=== PATIENT | male | born 1945 | race Caucasian/White ===

== ENCOUNTER 2019-04-02 11:08 | Inpatient (IN) | payer MEDICARE ==
[~2019-04-02 11:08] MED LIST: ISOVUE-370 76%-LOCM 1 ML ONE
[2019-04-02 11:47] LABS: Hemoglobin 13.9 g/dL (14.0-18.0); Mean Corpuscular HGB CONC 32.9 g/dL (32.0-36.0); Mean Corpuscular Hemoglobin 27.8 pg (27.0-31.0); Mean Corpuscular Volume 84.4 fL (78.0-98.0); Platelet Count 129 thou/uL (130-400); RBC Distribution Width 16.1 % (11.5-14.5); White Blood Cell (WBC) Count 5.2 thou/uL (4.8-10.8)
[2019-04-02] MEDS ORDERED: Metoprolol Tartrate 25 MG TAB ONE (11:57)
[2019-04-02] MEDS ORDERED: Metoprolol Tartrate 5 MG/5 ML VIAL ONE (11:59)
[2019-04-02 12:13] LABS: Band 12 % (5-11); Burr Cells SLIGHT = 2-5 cells (100X) (0-1/hpf); Eosinophils 1 % (0-10); Lymphocytes 7 % (21-51); MDiff Complete? YES; Monocytes 13 % (0-10); Neutrophil 57 % (42-75); Ovalocytes SLIGHT = 2-5 cells (100X) (0-1/hpf); Platelet Morphology Comment Appears Decreased; Polychromasia SLIGHT = 2-3 cells (100X) (0-2/hpf); Reactive Lymphocytes 9 % (0-10); Tear Drops SLIGHT = 2-5 cells (100X) (0-1/hpf)
[2019-04-02 12:15] LABS: ALT (SGPT) 14 U/L (8-55); AST (SGOT) 30 U/L (5-34); Albumin 3.7 g/dL (3.4-4.8); Alkaline Phosphatase 102 U/L (40-110); Anion Gap 16 mmol/L (10-20); BUN (Urea Nitrogen) 16 mg/dL (8.4-25.7); Bilirubin, Total 3.5 mg/dL (0.2-1.2); Calc. Creatinine Clearance 0 mL/min (70-130); Carbon Dioxide 21 mmol/L (23-31); Chloride 104 mmol/L (98-107); Estimated GFR-MDRD 74; Globulin 3.3 g/dL (2.4-3.5); Glucose 101 mg/dL (83-110); Potassium 4.3 mmol/L (3.5-5.1); Sodium 137 mmol/L (136-145)
--- NOTE | 2019-04-02 13:02 | RAD ---
RADIOGRAPH CHEST 1 VIEW: 04/02/2019 11:40 a.m. HISTORY: A 73-year-old male with dyspnea on exertion, atrial fibrillation and cardiac dysrhythmia. COMPARISON: None available. FINDINGS: The transverse diameter of the cardiac shadow is increased. It is uncertain how much of this represen ts magnification versus true cardiomegaly. The pulmonary vasculature is diffusely mildly prominent bu t there is no ruth pulmonary edema. Questionable moderate to large retrocardiac mass may or may not represent a hiatal hernia. The medial base of the left lower lobe is poorly visualized because of bod y habitus and overlying cardiac shadow. No pneumothorax. IMPRESSION: 1. Questionable cardiomegaly without pulmonary edema. 2. Questionable moderate sized hiatal hernia. 3. A lateral view may be useful. JN [] POS: TPC
[2019-04-02] MEDS ORDERED: Aspirin Chewable 81 MG TAB ONE (14:30)
[2019-04-02] MEDS ORDERED: Enoxaparin Sodium 100 MG/ML SYRINGE ONE (14:30)
--- NOTE | 2019-04-02 15:00 | CT ---
CT ANGIOGRAM OF THE CHEST CHEST: HISTORY: Atrial fibrillation. Shortness of breath on exertion. Rash. COMPARISON: None. TECHNIQUE: CT angiogram of the chest is performed in the axial plane. Three-dimensional reformatted images are s ubmitted for interpretation. FINDINGS: Mediastinum: Upper normal mediastinal lymph nodes. Executive Sales Assistant nonspecific lymph node is right par atracheal location and measures 1 cm. There is a prevascular lymph node measuring 1.6 x 1.0 cm. Heart: Cardiomegaly. No significant pericardial fluid. Aorta: No aneurysm or dissection Upper solid abdominal viscera: No abnormal enhancement. CT evidence of cholelithiasis. No evidence of cholecystitis. Trachea and central bronchi: Patent. Pleural spaces: No effusion. Posterior mediastinum: Moderate hiatal hernia. Lung parenchyma: Patchy dependent atelectatic changes. More focal consolidation left lower lobe may r epresent atelectasis. Minimal atelectatic changes in the medial right lower lobe. Partially calcified nodule in the lingula measuring 0.6 x 0.7 cm. Pneumothorax: None. Osseous structures: No lytic or blastic lesions. Pulmonary arteries: Adequate contrast opacification pulmonary arterial system to the level of lobar a rteries. Limited evaluation of the segmental and subsegmental arteries due to timing of bolus. No filling defect to suggest pulmonary embolism. IMPRESSION: 1. No evidence of pulmonary artery embolism to the level of the lobar arteries. 2. Nonspecific upper normal mediastinal lymph nodes. 3. Hiatal hernia. 4. Cardiomegaly without evidence of significant pericardial fluid. 5. Patchy groundglass opacities, nonspecific. Correlate for edema or infiltrate. 6. CT evidence of cholelithiasis without evidence of cholecystitis. Transcribed Date/Time: 04/02/2019 3:04 PM
[2019-04-02] MEDS ORDERED: Acetaminophen 325 MG TAB PO PRN (16:47)
[2019-04-02] MEDS ORDERED: Acyclovir 800 mg Tablet PO SCH (17:00)
--- NOTE | 2019-04-02 18:32 | HP ---
The patient does not have a primary care physician. CHIEF COMPLAINT: Irregular heart beat. HISTORY OF PRESENT ILLNESS: Mr. Marcial is a very pleasant 73-year-old gentleman, who says he has had a history of ulcerative colitis back when he was in his 30s, but says that has since gone away. He has not seen a doctor since 1994 and he says that he noticed a rash come out on his abdomen and back, which was slightly painful. He went to urgent care and they diagnosed him with shingles. However, they noticed that his heart rate was irregular and did an EKG on him and found that he was in atrial fibrillation and then sent him to the ER here. He says he really did not notice much of a problem, but when we tried to drill down on him, he does admit to being short of breath he says for the last year and a half. He says it notes it when he is walking short distances about 100 feet or so. He says he has not noticed any chest pain. No palpitations and essentially no other symptoms. He denies any nausea, no vomiting, no diarrhea, no diaphoresis. The patient also has no history of any GI bleeds. No history of any hematemesis or any melena. REVIEW OF SYSTEMS: All systems were reviewed and are negative except for that mentioned in the history of present illness. PAST MEDICAL HISTORY: Significant for colitis. He says ulcerative colitis diagnosed in his 30s. He has had no followup since then, and no surveillance colonoscopies. PAST SURGICAL HISTORY: He has had an inguinal hernia repair back in 1994. ALLERGIES: NO KNOWN DRUG ALLERGIES. SOCIAL HISTORY: He is . He is a nonsmoker and nondrinker. His code status is full code. FAMILY HISTORY: Significant for atrial fibrillation in his brother, father who had cancer and Alzheimer disease. CURRENT MEDICATIONS: Include acyclovir and but he actually had not started on the acyclovir and he only had been taking p.r.n. PHYSICAL EXAMINATION: GENERAL: He is alert and oriented and appears to be in no acute distress. VITAL SIGNS: Blood pressure was 111/70; his heart rate initially was around 115, currently it is in the 90s; respiratory rate is 16; and he is afebrile. HEENT: His pupils are equal, round, and reactive to light. Extraocular muscles are intact. His sclerae anicteric. Throat; there is no erythema. No exudates. NECK: No adenopathy. No bruits. LUNGS: Clear to auscultation. There is no wheezing, no rales, no rhonchi. CARDIOVASCULAR: His heart rate is irregular. There is no murmurs, no clicks, no rubs. ABDOMEN: Obese. It is soft, nontender, nondistended. Positive for bowel sounds. There is no rebound. No guarding. No organomegaly. EXTREMITIES: There is no calf tenderness. No joint effusions. NEUROLOGIC: Cranial nerves 2 through 12 are grossly intact. His muscle strength is 5/5 in both his upper and lower extremities. SKIN AND INTEGUMENT: There are no skin changes. No rash. LABORATORY DATA: Sodium is 137, potassium 4.3, chloride is 104, CO2 is 21, BUN is 16, creatinine of 0.99, glucose is 101, bilirubin is 3.5. White blood cell count 5.2, hemoglobin 13.9, hematocrit is 42.2, and platelet count is 129. The troponin is less than 0.010. He had a CT scan of the chest and that is a CT angiogram, which was negative for PE. There was evidence of cardiomegaly and hiatal hernia and some patchy infiltrate, which was nonspecific. He also had an EKG, which by my reading showed atrial fibrillation with a right bundle-branch block and the rate was 114. ASSESSMENT: This is a 73-year-old gentleman, who was recently diagnosed with shingles just today and was found to be in atrial fibrillation with rapid ventricular response. It is unclear how long he may have been in atrial fibrillation, but he admits to me that he had once checked his blood pressure over a year ago and it was reading irregular, but he never sought attention for it. He will be admitted for evaluation. 1. For the atrial fibrillation, currently his rate is controlled after being given a dose of metoprolol in the ER. We will start him on anticoagulation, get an echocardiogram and likely place him on a low-dose beta-michelle as tolerated and consult Cardiology for further recommendations. 2. The herpes zoster. The rash started on Sunday. He is almost out of the window for acyclovir, but we will go ahead and start that now. 3. History of ulcerative colitis. I explained to him that this diagnosis even though currently quiescent does place him at increased risk of colon cancer and that he should be getting his routine colonoscopy surveillance for colon cancer. 4. We discussed the anticoagulation warfarin versus the directly acting oral anticoagulants. The cost is a concern for him, so therefore he is going to think about which one would be the best option for him. We may be able to give him a coupon for a free month supply and hopefully by that time, his [facility] benefits will come through and he can then continue on with the medication. Job ID: [id number]
[2019-04-02] MEDS: Famotidine 20 MG TAB PO SCH (20:52)
[2019-04-02] MEDS: Metoprolol Tartrate 25 MG TAB PO SCH (20:52)
[2019-04-02] MEDS: Acyclovir 800 mg Tablet PO SCH (20:53)
[2019-04-03] MEDS: Acyclovir 800 mg Tablet PO SCH ×5 (00:05→20:21)
[2019-04-03 05:25] LABS: Anion Gap 12 mmol/L (10-20); BUN (Urea Nitrogen) 15 mg/dL (8.4-25.7); Calc. Creatinine Clearance 92 mL/min (70-130); Calcium 8.4 mg/dL (7.8-10.44); Carbon Dioxide 22 mmol/L (23-31); Chloride 104 mmol/L (98-107); Estimated GFR-MDRD 80; Glucose 81 mg/dL (83-110); Potassium 4.3 mmol/L (3.5-5.1); Sodium 134 mmol/L (136-145)
[2019-04-03 05:29] LABS: Band 1 % (5-11); Eosinophils 1 % (0-10); Hemoglobin 11.9 g/dL (14.0-18.0); Hypochromia SLIGHT = 6-15 cells (100X) (0-5/hpf); Lymphocytes 15 % (21-51); MDiff Complete? YES; Mean Corpuscular HGB CONC 31.7 g/dL (32.0-36.0); Mean Corpuscular Hemoglobin 26.8 pg (27.0-31.0); Mean Corpuscular Volume 84.7 fL (78.0-98.0); Monocytes 9 % (0-10); Neutrophil 74 % (42-75); Platelet Count 111 thou/uL (130-400); Platelet Morphology Comment Appears Adequate; RBC Distribution Width 16.3 % (11.5-14.5); Red Blood Cell (RBC) Count 4.44 mill/uL (4.70-6.10); White Blood Cell (WBC) Count 4.8 thou/uL (4.8-10.8)
[2019-04-03] MEDS ORDERED: Enoxaparin Sodium 80 MG/0.8 ML SYRINGE SC SCH (09:00)
[2019-04-03] MEDS ORDERED: Diltiazem 125 MG in Sodium Chloride 0.9% 100 ML IVPB SCH (09:15)
[2019-04-03] MEDS: Famotidine 20 MG TAB PO SCH ×2 (09:46→20:21)
[2019-04-03] MEDS: Metoprolol Tartrate 25 MG TAB PO SCH (09:46)
--- NOTE | 2019-04-03 12:40 | CON ---
DATE OF CONSULTATION: HISTORY OF PRESENT ILLNESS: Kyaw Marcial is a pleasant 73-year-old white male, who is admitted with atrial fibrillation with fast ventricular response. He apparently has not seen a doctor since 1994, when he had hernia surgery. He recently developed a painful rash and went to have this evaluated and was diagnosed as having shingles. Also, he had a fast irregular heartbeat and on EKG was found to have atrial fibrillation with fast ventricular response. He denies ever having any palpitations. He has noticed over the last year that whenever he would check his blood pressure, his monitor would say that he had an irregular pulse, but he states that the heart rate never was greater than 100 as best as he can recall. He does notice that he has developed exertional shortness of breath after walking 100 feet. He denies any chest discomfort. He denies any PND, orthopnea, or leg edema. I had Cardizem drip started earlier today when his heart rate was in the 120s to 130s; however, now, his heart rate has dipped down into the 60s, and we will hold the Cardizem drip at the present time. PAST MEDICAL HISTORY: History of ulcerative colitis diagnosed in his 30s; however, he has not had any problems since that time. Shingles. He denies any history of hypertension, diabetes, or hypercholesterolemia. MEDICATIONS: Acyclovir 800 mg 5 times per day, which he had not yet started. When admitted, no routine medicines. ALLERGIES: NONE. SOCIAL HISTORY: He does not smoke or drink. FAMILY HISTORY: Negative for coronary artery disease; however, brother has atrial fibrillation. REVIEW OF SYSTEMS: A 12-point review of systems is otherwise unremarkable. PHYSICAL EXAMINATION: VITAL SIGNS: Blood pressure 124/79, pulse of 120. HEENT: PERRL. NECK: Supple. CHEST: Clear. CARDIAC: S1 and S2 are normal without any S3, S4, or murmurs. Carotid upstrokes are normal without bruits. ABDOMEN: Normal bowel sounds without tenderness or organomegaly. EXTREMITIES: Reveal no clubbing, cyanosis, or edema. NEUROLOGIC: Grossly intact. SKIN: Warm and dry. LABORATORY DATA: EKG revealed atrial fibrillation with rapid ventricular response of 147 per minute, right bundle-branch block, and diffuse ST and T-wave changes. Echocardiogram revealed mild left ventricular dysfunction with ejection fraction of 40% to 45%, moderately enlarged right ventricle, left atrial and right atrial enlargement, moderate mitral regurgitation, aortic valvular sclerosis, mild aortic regurgitation, mild tricuspid regurgitation, and mild pulmonic regurgitation. Hemoglobin 11.9, hematocrit 37.6, white count 4800, platelets 111,000. D-dimer 0.68. Sodium 134, potassium 4.3, chloride 104, carbon dioxide 22, BUN 15, creatinine 0.92. BNP 361.7. Troponin I is normal. TSH is normal. Chest CTA revealed no evidence of pulmonary embolism, cardiomegaly, and cholelithiasis. IMPRESSION: 1. Atrial fibrillation with fast ventricular response, which historically may have been present for a year. 2. Shingles. 3. History of ulcerative colitis in his 30s. PLAN: Situation was discussed with the patient. Overall, it is recommended that he be anticoagulated, and we discussed Coumadin versus NOAC drugs. He is currently trying to get benefits at [place], and hopefully, they will be able to provide his medications, and so, he will be started on Eliquis 5 mg b.i.d. He will also be loaded with amiodarone since he does have left ventricular dysfunction. After 2 to 3 days of loading with amiodarone, then he will undergo transesophageal echo and electrical cardioversion. Risks of transesophageal echo and electrical cardioversion were discussed including esophageal or teeth damage, , worse heart rhythm, embolic phenomenon including stroke, etc. He understands and agrees to proceed. Job ID: [id number] [facility]
--- NOTE | 2019-04-03 14:11 | PDOC.HOSPP ---
- Subjective Encounter Date: 04/03/19 Encounter Time: 14:10 Subjective: Ms. Marcial was seen today in follow-up of new onset AFIB. He does not have any complaints. He says he is breathing better. - Objective Vital Signs & Weight: Vital Signs (12 hours) Temp Pulse Resp BP BP Pulse Ox 04/03/19 11:50 98.1 F 62 16 96/60 96 04/03/19 08:00 97.0 F L 120 H 18 124/79 120 H 04/03/19 04:00 97.1 F L 114 H 20 118/63 97 Weight Weight 202 lb 12.8 oz I&O: 04/02/19 04/03/19 04/04/19 06:59 06:59 06:59 Intake Total 720 Balance 720 Result Diagrams: 04/03/19 04:33 04/03/19 04:33 Hospitalist ROS - Medication Medications: Active Medications Generic Name Dose Route Start Last Admin Trade Name Freq PRN Reason Stop Dose Admin Acyclovir 800 mg 04/02/19 20:00 04/03/19 13:10 Zovirax PO 800 mg 5XD MARIA EUGENIA Administration Famotidine 20 mg 04/02/19 21:00 04/03/19 09:46 Pepcid PO 20 mg BID MARIA EUGENIA Administration Sodium Chloride 10 ml 04/03/19 21:00 04/03/19 09:46 Flush - Normal Saline IVF 10 ml Q12HR MARIA EUGENIA Administration - Exam Eye: PERRL, anicteric sclera Heart: no murmur, no gallops, no rubs, irregular Respiratory: CTAB, no wheezes, no ronchi, normal chest expansion, rales ( bilaterally) Gastrointestinal: soft, non-tender, non-distended, normal bowel sounds, no palpable masses, no hepatomegaly Extremities: no cyanosis, no edema Hosp A/P (1) Atrial fibrillation with RVR Code(s): I48.91 - UNSPECIFIED ATRIAL FIBRILLATION Status: Acute (2) Chronic systolic heart failure Code(s): I50.22 - CHRONIC SYSTOLIC (CONGESTIVE) HEART FAILURE Status: Chronic - Plan * AFIB- He remains in AFIB- Cardiology input appreciated * He has been started on Amiodarone * Eliquis for stroke prevention * Bilateral rales on exam- ? significance- will consider repeat CXR in the AM
[2019-04-03] MEDS: Amiodarone 200 MG TAB PO SCH ×2 (16:06→20:21)
[2019-04-03] MEDS ORDERED: FLU VACC TS2019-20(65YR UP)/PF 180 MCG/0.5 ML SYRINGE IM ONE (16:45)
[2019-04-03] MEDS: Apixaban 5 MG TAB PO SCH (20:21)
[2019-04-04] MEDS: Acyclovir 800 mg Tablet PO SCH ×5 (00:38→21:12)
[2019-04-04 06:03] LABS: Cardiac Risk 6.2 (Less than 4.5)
[2019-04-04] MEDS: Amiodarone 200 MG TAB PO SCH ×3 (09:44→21:12)
[2019-04-04] MEDS: Famotidine 20 MG TAB PO SCH ×2 (09:44→21:12)
[2019-04-04] MEDS: Apixaban 5 MG TAB PO SCH ×2 (09:45→21:12)
--- NOTE | 2019-04-04 13:14 | PDOC.HOSPP ---
- Subjective Encounter Date: 04/04/19 Encounter Time: 13:11 Subjective: Mr. Marcial was seen today in follow-up of AFIB > he does not have any complaints. - Objective Vital Signs & Weight: Vital Signs (12 hours) Temp Pulse Resp BP Pulse Ox 04/04/19 11:47 97.4 F L 104 H 24 H 120/86 95 04/04/19 08:00 97.6 F 102 H 16 118/68 98 04/04/19 04:00 97.4 F L 73 17 112/89 96 04/04/19 03:30 98 Weight Weight 202 lb 12.8 oz I&O: 04/03/19 04/04/19 04/05/19 06:59 06:59 06:59 Intake Total 720 980 Balance 720 980 Result Diagrams: 04/03/19 04:33 04/03/19 04:33 Hospitalist ROS - Medication Medications: Active Medications Generic Name Dose Route Start Last Admin Trade Name Freq PRN Reason Stop Dose Admin Acyclovir 800 mg 04/02/19 20:00 04/04/19 12:22 Zovirax PO 800 mg 5XD MARIA EUGENIA Administration Amiodarone HCl 400 mg 04/03/19 15:00 04/04/19 09:44 Cordarone PO 400 mg TID MARIA EUGENIA Administration Apixaban 5 mg 04/03/19 21:00 04/04/19 09:45 Eliquis PO 5 mg BID MARIA EUGENIA Administration Famotidine 20 mg 04/02/19 21:00 04/04/19 09:44 Pepcid PO 20 mg BID MARIA EUGENIA Administration Sodium Chloride 10 ml 04/03/19 21:00 04/04/19 09:46 Flush - Normal Saline IVF 10 ml Q12HR MARIA EUGENIA Administration Sodium Chloride 10 ml 04/03/19 09:12 04/03/19 20:21 Flush - Normal Saline IVF 10 ml PRN PRN Administration Saline Flush - Exam Eye: PERRL Heart: no gallops, no rubs, normal peripheral pulses, irregular Respiratory: CTAB, no wheezes, no rales, no ronchi, normal chest expansion Gastrointestinal: soft, non-tender, non-distended, normal bowel sounds, no palpable masses, no hepatomegaly Extremities: no cyanosis, no clubbing, no edema Hosp A/P (1) Atrial fibrillation with RVR Code(s): I48.91 - UNSPECIFIED ATRIAL FIBRILLATION Status: Acute (2) Chronic systolic heart failure Code(s): I50.22 - CHRONIC SYSTOLIC (CONGESTIVE) HEART FAILURE Status: Chronic (3) Herpes zoster Code(s): B02.9 - ZOSTER WITHOUT COMPLICATIONS Status: Acute - Plan * AFIB- He remains in AFIB- continue Amiodarone, and plan is for DOUGIE and Possible Cardioversion on Sunday * Eliquis for stroke prevention * Herpes Zoster- continue Acyclovir
[2019-04-05] MEDS: Acyclovir 800 mg Tablet PO SCH ×6 (00:41→23:54)
[2019-04-05 05:36] VITALS: BMI 29.7
[2019-04-05] MEDS: Apixaban 5 MG TAB PO SCH ×2 (09:42→20:16)
[2019-04-05] MEDS: Amiodarone 200 MG TAB PO SCH ×3 (09:42→20:15)
[2019-04-05] MEDS: Famotidine 20 MG TAB PO SCH ×2 (09:43→20:22)
--- NOTE | 2019-04-05 15:19 | PDOC.HOSPP ---
- Subjective Encounter Date: 04/05/19 Encounter Time: 14:00 Subjective: CC: afib, shingles Patient is doing well. Has mild pain in LLQ where shingles rash is but not significant. States medication is working Patient's heart rate noted to be 115 today. On exam still in afib. Patient states that he went for a walk in the hallway at 7 am this morning and it may have been elevated secondary to that. He denies chest pain, palpitations, lightheadedness or dizziness. - Objective Vital Signs & Weight: Vital Signs (12 hours) Temp Pulse Resp BP Pulse Ox 04/05/19 11:20 97.8 F 115 H 17 121/86 99 04/05/19 07:42 97.4 F L 115 H 19 122/95 H 98 04/05/19 03:54 98.1 F 94 18 110/83 97 Weight Weight 201 lb 9.6 oz I&O: 04/04/19 04/05/19 04/06/19 06:59 06:59 06:59 Intake Total 980 1890 Balance 980 1890 Result Diagrams: 04/03/19 04:33 04/03/19 04:33 Hospitalist ROS - Review of Systems Constitutional: denies: fever, chills Respiratory: denies: cough, dry, shortness of breath Cardiovascular: denies: chest pain, palpitations - Medication Medications: Active Medications Generic Name Dose Route Start Last Admin Trade Name Freq PRN Reason Stop Dose Admin Acyclovir 800 mg 04/02/19 20:00 04/05/19 11:51 Zovirax PO 800 mg 5XD MARIA EUGENIA Administration Amiodarone HCl 400 mg 04/03/19 15:00 04/05/19 09:42 Cordarone PO 400 mg TID MARIA EUGENIA Administration Apixaban 5 mg 04/03/19 21:00 04/05/19 09:42 Eliquis PO 5 mg BID MARIA EUGENIA Administration Famotidine 20 mg 04/02/19 21:00 04/05/19 09:43 Pepcid PO 20 mg BID MARIA EUGENIA Administration Sodium Chloride 10 ml 04/03/19 21:00 04/05/19 09:43 Flush - Normal Saline IVF 10 ml Q12HR MARIA EUGENIA Administration Sodium Chloride 10 ml 04/03/19 09:12 04/03/19 20:21 Flush - Normal Saline IVF 10 ml PRN PRN Administration Saline Flush - Exam General Appearance: NAD, awake alert Eye: PERRL, anicteric sclera ENT: normocephalic atraumatic Neck: no JVD Heart - other findings: irregularly irregular Gastrointestinal - other findings: patient with healing shingles rash on left lower quadrant of abdomen Extremities: no cyanosis, no clubbing, no edema Skin: normal turgor, no lesions Hosp A/P - Plan This is 73 year old male with history of ulcerative colitis who presented with shingles to PCP and was sent to the ER when he was found to be in new onset afib New onset atrial fibrillation - repeat EKG today showing afib with RVR, RBBB. Will recheck electrolytes. Per cardiology, plan for DOUGIE with cardioversion on Sunday - TSH normal at 1.55. - continue amiodarone 400 mg po tid - continue eliquis Shingles - continue acyclovir five times daily Anemia - Hb 11.9/37.6. Recheck CBC today Hyponatremia - mild sodium 134 on 04/03. Will recheck BMP today Code status: full code DVT prophylaxis: eliquis
[2019-04-05 16:01] LABS: Hemoglobin 12.9 g/dL (14.0-18.0); Mean Corpuscular HGB CONC 31.8 g/dL (32.0-36.0); Mean Corpuscular Hemoglobin 27.3 pg (27.0-31.0); Mean Corpuscular Volume 85.8 fL (78.0-98.0); Mean Platelet Volume 8.2 fL (7.4-10.4); Platelet Count 134 thou/uL (130-400); RBC Distribution Width 16.4 % (11.5-14.5); Red Blood Cell (RBC) Count 4.73 mill/uL (4.70-6.10); White Blood Cell (WBC) Count 4.8 thou/uL (4.8-10.8)
[2019-04-05 16:22] LABS: Anion Gap 14 mmol/L (10-20); BUN (Urea Nitrogen) 16 mg/dL (8.4-25.7); Calc. Creatinine Clearance 96 mL/min (70-130); Calcium 8.4 mg/dL (7.8-10.44); Carbon Dioxide 19 mmol/L (23-31); Chloride 106 mmol/L (98-107); Estimated GFR-MDRD 87; Glucose 104 mg/dL (83-110); Potassium 3.9 mmol/L (3.5-5.1); Sodium 135 mmol/L (136-145)
--- NOTE | 2019-04-05 17:19 | PDOC.CPN ---
- Subjective Date: 04/05/19 Time: 17:17 Interval history: Doing well. No new issues. - Review of Systems General: denies: fever/chills, weight/appetite/sleep changes, night sweats, fatigue Respiratory: denies: cough, congestion, shortness of breath, exercise intolerance Cardiovascular: denies: chest pain, palpitation, edema, paroxysmal nocturnal dyspnea, orthopnea Gastrointestinal: denies: nausea, vomiting, diarrhea, constipation, abd pain, GI bleeding Musculoskeletal: denies: pain, tenderness, stiffness, swelling, arthritis/ arthralgias Neurological: denies: numbness, syncope, seizure, weakness - Objective Allergies/Adverse Reactions: Allergies Allergy/AdvReac Type Severity Reaction Status Date / Time No Known Allergies Allergy Verified 04/02/19 17:10 Visit Medications: Current Medications Acetaminophen (Tylenol) 650 mg PO Q4H PRN PRN Reason: Headache/Fever/Mild Pain (1-3) Acyclovir (Zovirax) 800 mg PO 5XD [facility] Last Admin: 04/05/19 15:17 Dose: 800 mg Amiodarone HCl (Cordarone) 400 mg PO TID [facility] Last Admin: 04/05/19 15:17 Dose: 400 mg Apixaban (Eliquis) 5 mg PO BID [facility] Last Admin: 04/05/19 09:42 Dose: 5 mg Famotidine (Pepcid) 20 mg PO BID [facility] Last Admin: 04/05/19 09:43 Dose: 20 mg Sodium Chloride (Flush - Normal Saline) 10 ml IVF Q12HR [facility] Last Admin: 04/05/19 09:43 Dose: 10 ml Sodium Chloride (Flush - Normal Saline) 10 ml IVF PRN PRN PRN Reason: Saline Flush Last Admin: 04/03/19 20:21 Dose: 10 ml Vital Signs & Weight: Vital Signs Temp Pulse Resp BP Pulse Ox 04/05/19 15:14 97.7 F 104 H 15 120/86 97 04/05/19 11:20 97.8 F 115 H 17 121/86 99 04/05/19 07:42 97.4 F L 115 H 19 122/95 H 98 Weight 201 lb 9.6 oz - Physical Exam General: alert & oriented x3 HEENT: mucus membranes moist Neck: supple neck Cardiac: irregularly regular Lungs: clear to auscultation Neuro: grossly intact Abdomen: active bowel sounds Extremities: no edema Skin: clear Musculoskeletal: normal range of motion - Labs Result Diagrams: 04/05/19 15:53 04/05/19 15:53 Troponin/CKMB Troponin I Less than 0.010 ng/mL (< 0.028) 04/02/19 11:30 - Telemetry Supraventricular conduction: atrial fibrillation - Assessment/Plan Assessment/Plan: 1. Atrial fibrillation, rate controlled 2. Shingles. 3. Hx of ulcerative colitis in his 30's. PLAN: - Currently rate controlled. - DOUGIE Cardioversion Sunday.
[2019-04-06 06:44] LABS: Hemoglobin 12.8 g/dL (14.0-18.0); Mean Corpuscular HGB CONC 31.8 g/dL (32.0-36.0); Mean Platelet Volume 9.1 fL (7.4-10.4); Platelet Count 136 thou/uL (130-400); RBC Distribution Width 16.3 % (11.5-14.5); Red Blood Cell (RBC) Count 4.73 mill/uL (4.70-6.10); White Blood Cell (WBC) Count 5.5 thou/uL (4.8-10.8)
[2019-04-06 06:47] LABS: INR-International Normal Ratio 1.7
[2019-04-06 06:48] LABS: PTT 58.9 SEC (22.9-36.1)
[2019-04-06 07:00] LABS: Anion Gap 13 mmol/L (10-20); BUN (Urea Nitrogen) 16 mg/dL (8.4-25.7); Calc. Creatinine Clearance 94 mL/min (70-130); Calcium 8.5 mg/dL (7.8-10.44); Carbon Dioxide 23 mmol/L (23-31); Chloride 106 mmol/L (98-107); Estimated GFR-MDRD 84; Glucose 86 mg/dL (83-110); Potassium 3.9 mmol/L (3.5-5.1); Sodium 138 mmol/L (136-145)
[2019-04-06] MEDS: Acyclovir 800 mg Tablet PO SCH ×4 (08:07→20:56)
[2019-04-06] MEDS: Apixaban 5 MG TAB PO SCH ×2 (08:07→20:56)
[2019-04-06] MEDS: Amiodarone 200 MG TAB PO SCH ×3 (08:07→20:56)
[2019-04-06] MEDS: Famotidine 20 MG TAB PO SCH ×2 (08:07→20:56)
--- NOTE | 2019-04-06 17:43 | PDOC.CPN ---
- Subjective Date: 04/06/19 Time: 17:43 - Review of Systems General: denies: fever/chills, weight/appetite/sleep changes, night sweats, fatigue Respiratory: denies: cough, congestion, shortness of breath, exercise intolerance Cardiovascular: denies: chest pain, palpitation, edema, paroxysmal nocturnal dyspnea, orthopnea Gastrointestinal: denies: nausea, vomiting, diarrhea, constipation, abd pain, GI bleeding Musculoskeletal: denies: pain, tenderness, stiffness, swelling, arthritis/ arthralgias Neurological: denies: numbness, syncope, seizure, weakness - Objective Allergies/Adverse Reactions: Allergies Allergy/AdvReac Type Severity Reaction Status Date / Time No Known Allergies Allergy Verified 04/02/19 17:10 Visit Medications: Current Medications Acetaminophen (Tylenol) 650 mg PO Q4H PRN PRN Reason: Headache/Fever/Mild Pain (1-3) Acyclovir (Zovirax) 800 mg PO 5XD [facility] Last Admin: 04/06/19 16:08 Dose: 800 mg Amiodarone HCl (Cordarone) 400 mg PO TID [facility] Last Admin: 04/06/19 14:31 Dose: 400 mg Apixaban (Eliquis) 5 mg PO BID [facility] Last Admin: 04/06/19 08:07 Dose: 5 mg Famotidine (Pepcid) 20 mg PO BID [facility] Last Admin: 04/06/19 08:07 Dose: 20 mg Sodium Chloride (Flush - Normal Saline) 10 ml IVF Q12HR [facility] Last Admin: 04/06/19 09:00 Dose: 10 ml Sodium Chloride (Flush - Normal Saline) 10 ml IVF PRN PRN PRN Reason: Saline Flush Last Admin: 04/03/19 20:21 Dose: 10 ml Vital Signs & Weight: Vital Signs Temp Pulse Resp BP Pulse Ox 04/06/19 16:00 18 04/06/19 15:34 99.4 F 78 16 120/72 94 L 04/06/19 11:51 97.7 F 76 16 124/85 97 04/06/19 08:00 97.8 F 76 18 140/84 97 Weight 201 lb 9.6 oz - Physical Exam General: alert & oriented x3 HEENT: mucus membranes moist Neck: supple neck Cardiac: irregularly regular Lungs: clear to auscultation Neuro: grossly intact Abdomen: active bowel sounds, soft, non-tender Extremities: no edema Skin: clear Musculoskeletal: no pain - Labs Result Diagrams: 04/06/19 05:59 04/06/19 05:59 Troponin/CKMB Troponin I Less than 0.010 ng/mL (< 0.028) 04/02/19 11:30 - Telemetry Supraventricular conduction: atrial fibrillation - Assessment/Plan Assessment/Plan: 1. Atrial fibrillation, rate controlled 2. Shingles. 3. Hx of ulcerative colitis in his 30's. PLAN: - Currently rate controlled. - DOUGIE Cardioversion Tomorrow with Dr. Tavera.
[2019-04-06] MEDS ORDERED: Lidocaine 1% w/Epinephrine 1:100K 20 ML VIAL FS SCH (20:15)
--- NOTE | 2019-04-06 20:29 | PDOC.HOSPP ---
- Subjective Encounter Date: 04/06/19 Encounter Time: 20:00 Subjective: The patient is doing well. He says his shingles rash hurt some on the left side but it improved with medications. He denies palpitations, chest pain or shortness of breath - Objective Vital Signs & Weight: Vital Signs (12 hours) Temp Pulse Resp BP Pulse Ox 04/06/19 16:00 18 04/06/19 15:34 99.4 F 78 16 120/72 94 L 04/06/19 11:51 97.7 F 76 16 124/85 97 Weight Weight 201 lb 9.6 oz I&O: 04/05/19 04/06/19 04/07/19 06:59 06:59 06:59 Intake Total 1890 1000 Balance 1890 1000 Result Diagrams: 04/06/19 05:59 04/06/19 05:59 Hospitalist ROS - Review of Systems Constitutional: denies: fever, chills Respiratory: denies: cough, dry, shortness of breath - Medication Medications: Active Medications Generic Name Dose Route Start Last Admin Trade Name Freq PRN Reason Stop Dose Admin Acyclovir 800 mg 04/02/19 20:00 04/06/19 16:08 Zovirax PO 800 mg 5XD MARIA EUGENIA Administration Amiodarone HCl 400 mg 04/03/19 15:00 04/06/19 14:31 Cordarone PO 400 mg TID MARIA EUGENIA Administration Apixaban 5 mg 04/03/19 21:00 04/06/19 08:07 Eliquis PO 5 mg BID MARIA EUGENIA Administration Famotidine 20 mg 04/02/19 21:00 04/06/19 08:07 Pepcid PO 20 mg BID MARIA EUGENIA Administration Sodium Chloride 10 ml 04/03/19 21:00 04/06/19 09:00 Flush - Normal Saline IVF 10 ml Q12HR MARIA EUGENIA Administration Sodium Chloride 10 ml 04/03/19 09:12 04/03/19 20:21 Flush - Normal Saline IVF 10 ml PRN PRN Administration Saline Flush - Exam General Appearance: NAD, awake alert Eye: PERRL, anicteric sclera ENT: normocephalic atraumatic, no oropharyngeal lesions Neck: supple, symmetric, no JVD Heart: RRR, no murmur, no gallops, no rubs Respiratory: CTAB, no wheezes, no rales, no ronchi Gastrointestinal: soft, non-tender, non-distended, normal bowel sounds Extremities: no cyanosis, no clubbing, no edema Skin: normal turgor, no lesions, no rashes Neurological: cranial nerve grossly intact, normal sensation to touch, no focal deficits, no new deficit Musculoskeletal: normal tone, normal strength, no muscle wasting Hosp A/P - Plan Chest X ray: cardiomegaly CTA: patchy ground glass opacities, cardiomegaly, cholelithiasis. No PE This is 73 year old male with history of ulcerative colitis who presented with shingles to PCP and was sent to the ER when he was found to be in new onset afib New onset atrial fibrillation - Per cardiology, plan for DOUGIE with cardioversion on Sunday with Dr. Tavera. ECHO shows EF 40-45%, moderate MR, mild AR, WI and TR - TSH normal at 1.55. CTA shows no PE - continue amiodarone 400 mg po tid - continue eliquis Shingles - continue acyclovir five times daily Anemia - stable, check iron panel Hyponatremia - resolved Code status: full code DVT prophylaxis: eliquis
[2019-04-06] MEDS ORDERED: Potassium Chloride 20 MEQ TAB PO SCH (20:45)
[2019-04-07 05:04] LABS: Hemoglobin 13.2 g/dL (14.0-18.0); Mean Corpuscular HGB CONC 31.5 g/dL (32.0-36.0); Mean Corpuscular Hemoglobin 26.6 pg (27.0-31.0); Mean Corpuscular Volume 84.5 fL (78.0-98.0); Mean Platelet Volume 8.7 fL (7.4-10.4); Platelet Count 148 thou/uL (130-400); RBC Distribution Width 16.2 % (11.5-14.5); Red Blood Cell (RBC) Count 4.97 mill/uL (4.70-6.10); White Blood Cell (WBC) Count 5.4 thou/uL (4.8-10.8)
[2019-04-07 05:26] LABS: Anion Gap 12 mmol/L (10-20); BUN (Urea Nitrogen) 15 mg/dL (8.4-25.7); Calc. Creatinine Clearance 94 mL/min (70-130); Calcium 8.6 mg/dL (7.8-10.44); Carbon Dioxide 22 mmol/L (23-31); Chloride 106 mmol/L (98-107); Estimated GFR-MDRD 84; Glucose 85 mg/dL (83-110); Iron 48 ug/dL (65-175); Iron Binding Capacity, Total 354 mcg/dL (261-462); Magnesium 1.8 mg/dL (1.6-2.6); Potassium 3.9 mmol/L (3.5-5.1); Sodium 136 mmol/L (136-145)
[2019-04-07] MEDS: Acyclovir 800 mg Tablet PO SCH ×4 (06:40→15:27)
[2019-04-07] MEDS ORDERED: PROPOFOL 20 ML ONE (07:57)
[2019-04-07] MEDS ORDERED: PROPOFOL 200 MG/20 ML VIAL ONE (09:59)
[2019-04-07] MEDS: Famotidine 20 MG TAB PO SCH (10:46)
[2019-04-07] MEDS: Amiodarone 200 MG TAB PO SCH ×2 (10:46→15:27)
[2019-04-07] MEDS: Apixaban 5 MG TAB PO SCH (10:46)
--- NOTE | 2019-04-07 15:31 | OP ---
DATE OF PROCEDURE: 04/07/2019 PROCEDURE PERFORMED: Transesophageal echocardiogram. INDICATIONS: Kyaw Marcial is a 73-year-old gentleman with paroxysmal atrial fibrillation. DESCRIPTION OF PROCEDURE: The patient was taken to PACU. The patient was sedated by anesthesiology. Transesophageal probe was placed to the distal esophagus and stomach. Echocardiographic images were obtained. The transesophageal probe was removed. FINDINGS: 1. Mild decrease in left ventricular systolic function. 2. Left atrial enlargement. 3. Global hypokinesis. 4. Moderate mitral regurgitation. 5. Moderate tricuspid regurgitation. 6. Trivial aortic regurgitation. 7. No thrombus is noted in the left atrium or left atrial appendage. 8. Atherosclerotic debris in the descending aorta. IMPRESSION: No formed thrombus in left atrium or left atrial appendage. Job ID: [id number]
--- NOTE | 2019-04-07 15:31 | OP ---
DATE OF PROCEDURE: 04/07/2019 PROCEDURE PERFORMED: Electrocardioversion. INDICATIONS: A 73-year-old gentleman with atrial fibrillation. DESCRIPTION OF PROCEDURE: The patient was taken to the PACU. The patient was sedated by Anesthesiology. The patient was shocked with 200 joules of synchronized electricity. The patient converted to normal sinus rhythm. IMPRESSION: Successful electrocardioversion. Job ID: [id number]
[2019-04-07 16:28] VITALS: BP 109/64; TEMP 98
--- NOTE | 2019-04-07 16:54 | EKG ---
Test Reason : Blood Pressure : / mmHG Vent. Rate : 103 BPM Atrial Rate : 122 BPM P-R Int : 000 ms QRS Dur : 158 ms QT Int : 412 ms P-R-T Axes : 000 -05 -55 degrees QTc Int : 539 ms Poor data quality, interpretation may be adversely affected Atrial fibrillation with rapid ventricular response Right bundle branch block T wave abnormality, consider lateral ischemia or digitalis effect Abnormal ECG When compared with ECG of 02-APR-2019 12:45, (Unconfirmed) Questionable change in QRS axis T wave inversion now evident in Inferior leads Confirmed by DR. Davy QUINONES ([id number]) on 04/07/2019 4:54:15 PM Referred By: [facility] Confirmed By:DR. Davy QUINONES
--- NOTE | 2019-04-08 12:31 | DIS ---
DATE OF ADMISSION: 04/02/2019 DATE OF DISCHARGE: 04/07/2019 DISCHARGE DIAGNOSES: New onset atrial fibrillation status post cardioversion, shingles, hyponatremia, anemia, cholelithiasis, hiatal hernia, nonspecific patchy opacities on CT chest. CONSULTATIONS: Dr. Eitan Tavera with Cardiology. PROCEDURES: DOUGIE with cardioversion on 04/07. BRIEF HISTORY OF PRESENT ILLNESS: This is a 73-year-old male with a past medical history of ulcerative colitis, who had presented to his PCP with an attack of shingles. However, they noticed that his heart rate was irregular and when they did an EKG on him, they found that he was in atrial fibrillation and sent him to the emergency room. The patient reported dyspnea on exertion for the past one year , he denied any palpitations. The patient was admitted for further workup. Atrial fibrillation with RVR: The patient initially presented with a heart rate of 102 in the ER. EKG showed atrial fibrillation with RVR, and a right bundle- branch block. Chest Xray showed questionable cardiomegaly. CTA showed no PE, but some nonspecific upper normal mediastinal lymph nodes and patchy ground-glass opacities. ECHO showed an ejection fraction of 40% to 45% with moderate MR. He was started on a beta michelle but after cardiology consultation was loaded with amiodarone and eliquis in anticipation of cardioversion. The patient underwent a DOUGIE on 04/07, with successful cardioversion to normal sinus rhythm. On the day of discharge, the patient had a sinus rhythm with heart rate of 94. He was discharged with an amiodarone taper of 400 mg twice daily for 2 weeks, then 200 mg twice daily for 2 weeks, then 200 mg a day for a week and then to follow up with Dr. Eitan Tavera in a month. He was also discharged with Eliquis 5 mg twice daily. The patient had troponins done that were negative x1. Lipid panel was unremarkable with an LDL of 73 and total cholesterol of 118. Shingles: The patient was started on acyclovir 5 times daily. His shingles rash was improving and noted to be healing. He was given a prescription for acyclovir for another week. The patient is to follow up with his PCP. Anemia: The patient had a hemoglobin of 13.2 with an elevated RDW of 16.2. He had an iron panel done which showed a ferritin level of 36.43, an iron saturation of 14, and an iron level of 48 with a normal TIBC. He was not started on any iron supplementation, this can be followed up as an outpatient. Hyponatremia: The patient initially had a sodium level of 134 on the day of admission, which resolved to 136 on the day of discharge. PERTINENT LABORATORY DATA: CBC 04/07: hemoglobin 13.2, rest of CBC unremarkable. BMP 12/05:, within normal limits. Iron :48. TIBC :354. Iron saturation%: 14. Ferritin : 36.43. Lipid panel: Triglycerides 108, cholesterol 118, LDL 73, HDL 19. TSH :1.253. PERTINENT IMAGING STUDIES: Chest x-ray on 04/02: no acute disease. Cardiomegaly with moderate-sized hiatal hernia. CTA thorax 04/02: ground-glass opacities: No PE. Nonspecific upper normal mediastinal lymph nodes. Cholelithiasis. Echocardiogram on 04/03: EF of 40% to 45%, moderate MR, mild AR, mild TR, mild MT. DISCHARGE CONDITION: Stable. ACTIVITY: As tolerated. DIET: Heart healthy diet. DISCHARGE MEDICATIONS: 1. Acyclovir 800 mg p.o. five times daily. 2. Amiodarone 400 mg twice daily for 2 weeks, then 200 mg twice daily for 2 weeks, then one tablet 200 mg a day after that for a week. 3. Eliquis 5 mg p.o. b.i.d. DISCHARGE INSTRUCTIONS: The patient should follow up with Dr. Eitan Tavera in a month and follow up with his PCP in a week. If the patient has abdominal pain, nausea, or vomiting, he should consider coming back to the ER for workup of gallstones. The patient should also get a repeat chest x-ray to follow up the patchy opacity seen on prior x-ray. However, the patient is asymptomatic currently. Job ID: [id number] [facility]
--- NOTE | 2019-04-09 18:44 | EKG ---
Test Reason : POST DOUGIE/CARDIOVERSI Blood Pressure : / mmHG Vent. Rate : 056 BPM Atrial Rate : 056 BPM P-R Int : 234 ms QRS Dur : 164 ms QT Int : 528 ms P-R-T Axes : 050 -05 264 degrees QTc Int : 509 ms Sinus bradycardia with 1st degree A-V block Right bundle branch block T wave abnormality, consider inferolateral ischemia Abnormal ECG When compared with ECG of 02-APR-2019 12:45, (Unconfirmed) Sinus rhythm has replaced Atrial fibrillation Vent. rate has decreased BY 58 BPM Questionable change in QRS axis T wave inversion now evident in Inferior leads Confirmed by DR. Rojas GAMBOA ([id number]) on 04/09/2019 6:44:36 PM Referred By: [facility]/PRAVIN Confirmed By:DR. Rojas GAMBOA
== END 2019-04-07 18:45 | disposition home or self-care (01) | DRG 309 ==
LOC: ERS 11:08 → 2NO 14:40 → ERS 15:53
PROVIDERS: ADMIT Internal Medicine; ATTEND Internal Medicine
PROC: B246ZZ4 Ultrasonography of Right and Left Heart, Transesophageal (ICD-10-PCS; principal; 2019-04-07)
PROC: 5A2204Z Restoration of Cardiac Rhythm, Single (ICD-10-PCS; 2019-04-07)
DX: I48.91 Unspecified atrial fibrillation (principal); E87.1 Hypo-osmolality and hyponatremia; K51.90 Ulcerative colitis, unspecified, without complications; I50.22 Chronic systolic (congestive) heart failure; D64.9 Anemia, unspecified; B02.9 Zoster without complications; K80.20 Calculus of gallbladder without cholecystitis without obstruction; K44.9 Diaphragmatic hernia without obstruction or gangrene; I45.10 Unspecified right bundle-branch block
CPT/HCPCS: 36415; 71045; 71275; 80048; 80053; 80061; 82728; 83540; 83550; 83735; 83880; 84443; 84484; 85025; 85027; 85379; 85610; 85730; 90471; 90662; 92960; 93005; 93010; 93306; 93312; 94760; 96361; 96372; 96374; G0008; J1650; J2704; J3490; Q9966

== ENCOUNTER 2019-08-19 06:59 | Outpatient (CLI) | payer MEDICARE ==
[2019-08-19 10:30] LABS: #Eosinphils 0.3 thou/uL (0.0-0.7); #Lymphocytes 0.7 thou/uL (1.20-3.40); #Monocytes 0.6 thou/uL (0.11-0.59); #Neutrophils 3.2 thou/uL (1.40-6.50); %Basophils 0.7 % (0.0-1.0); %Lymphocytes 13.8 % (21.0-51.0); %Monocytes 12.6 % (0.0-10.0); %Neutrophils 66.9 % (42.0-75.0); Hemoglobin 14.8 g/dL (14.0-18.0); Mean Corpuscular HGB CONC 31.6 g/dL (32.0-36.0); Mean Corpuscular Hemoglobin 29.4 pg (27.0-31.0); Mean Platelet Volume 7.6 fL (7.4-10.4); Platelet Count 163 thou/uL (130-400); RBC Distribution Width 13.9 % (11.5-14.5); Red Blood Cell (RBC) Count 5.02 mill/uL (4.70-6.10); White Blood Cell (WBC) Count 4.8 thou/uL (4.8-10.8)
[2019-08-19 10:46] LABS: ALT (SGPT) 26 U/L (8-55); AST (SGOT) 47 U/L (5-34); Albumin 3.3 g/dL (3.4-4.8); Alkaline Phosphatase 115 U/L (40-110); Anion Gap 10 mmol/L (10-20); BUN (Urea Nitrogen) 16 mg/dL (8.4-25.7); Calc. Creatinine Clearance 0 mL/min (70-130); Carbon Dioxide 27 mmol/L (23-31); Cardiac Risk 5.2 (Less than 4.5); Chloride 104 mmol/L (98-107); Cholesterol 152 mg/dl (< 200 Desired); Estimated GFR-MDRD 86; Globulin 3.6 g/dL (2.4-3.5); Glucose 104 mg/dL (83-110); HDL Cholesterol 29 mg/dL (>60 Neg Risk); LDL Cholesterol, Calculated 103 mg/dL; Protein, Total 6.9 g/dL (5.8-8.1); Sodium 137 mmol/L (136-145); Triglycerides 102 mg/dL (Less than 150)
--- NOTE | 2019-08-20 22:44 | EKG ---
Test Reason : Blood Pressure : / mmHG Vent. Rate : 067 BPM Atrial Rate : 067 BPM P-R Int : 242 ms QRS Dur : 178 ms QT Int : 482 ms P-R-T Axes : 009 -01 106 degrees QTc Int : 509 ms Sinus rhythm with 1st degree A-V block Right bundle branch block T wave abnormality, consider lateral ischemia Abnormal ECG When compared with ECG of 07-APR-2019 08:49, T wave inversion no longer evident in Inferior leads T wave inversion more evident in Lateral leads Confirmed by Shawnee CARRASCO ([id number]) on 08/20/2019 10:43:39 PM Referred By: S[facility]NA Confirmed By:Shawnee CARRASCO
== END 2019-08-19 07:00 | disposition home or self-care (01) ==
LOC: LABBT 06:59
PROVIDERS: ATTEND Internal Medicine Cardiovascular Disease
DX: I44.0 Atrioventricular block, first degree (principal); I45.10 Unspecified right bundle-branch block
CPT/HCPCS: 80053; 80061; 85025; 93005; 93010

== ENCOUNTER 2019-08-21 05:44 | Day surgery (SDC) | payer MEDICARE ==
[2019-08-19 08:13] VITALS: BMI 25.8
[2019-08-21] MEDS ORDERED: Heparin 10,000 UNITS/1 ML VIAL ONE (06:40)
[2019-08-21] MEDS ORDERED: Midazolam HCl 2 mg/2 ml Vial ONE (06:59)
[2019-08-21] MEDS ORDERED: Fentanyl 100 MCG/2 ML VIAL ONE (06:59)
[2019-08-21] MEDS ORDERED: Protamine Sulfate 50 MG/5 ML VIAL ONE (07:23)
[2019-08-21] MEDS ORDERED: Aspirin Chewable 81 MG TAB ONE (08:36)
[2019-08-21] MEDS ORDERED: Carvedilol 3.125 MG TAB ONE (08:36)
[2019-08-21] MEDS ORDERED: Iopamidol 370 76% 50 ML VIAL FS ONE (09:17)
[2019-08-21] MEDS ORDERED: Iopamidol 370 76% 100 ML VIAL ONE (09:17)
[2019-08-21] MEDS ORDERED: Furosemide 20 MG TAB PO SCH (09:45)
== END 2019-08-21 15:04 | disposition home or self-care (01) ==
LOC: CCL 05:44
PROVIDERS: ATTEND Internal Medicine Cardiovascular Disease
PROC: 4A023N7 Measurement of Cardiac Sampling and Pressure, Left Heart, Percutaneous Approach (ICD-10-PCS; principal; 2019-08-21)
PROC: B2111ZZ Fluoroscopy of Multiple Coronary Arteries using Low Osmolar Contrast (ICD-10-PCS; 2019-08-21)
DX: I25.10 Atherosclerotic heart disease of native coronary artery without angina pectoris (principal); I50.9 Heart failure, unspecified; I48.91 Unspecified atrial fibrillation; Z79.01 Long term (current) use of anticoagulants; Z79.899 Other long term (current) drug therapy
CPT/HCPCS: 85347; 93458; 99152; 99153; C1769; J1644; J2250; J2720; J3010; Q9967

== ENCOUNTER 2021-02-17 10:59 | Outpatient (CLI) | payer MEDICARE, OTHER | END 2021-02-17 11:00 | disposition home or self-care (01) | LOC: BICRAD 10:59 | PROVIDERS: ATTEND Nurse Practitioner Family | DX: I48.0 Paroxysmal atrial fibrillation (principal) | CPT/HCPCS: 71046 ==

== ENCOUNTER 2021-07-05 19:26 | Emergency (ER) | payer MEDICARE, OTHER ==
[2021-07-06] MEDS ORDERED: HYDROcodone/Acetaminophen 10/325 mg Tablet ONE (03:42)
== END 2021-07-06 04:02 | disposition home or self-care (01) ==
LOC: ERS 19:26
DX: S32.019A Unspecified fracture of first lumbar vertebra, initial encounter for closed fracture (principal); S32.029A Unspecified fracture of second lumbar vertebra, initial encounter for closed fracture; S32.039A Unspecified fracture of third lumbar vertebra, initial encounter for closed fracture; S32.049A Unspecified fracture of fourth lumbar vertebra, initial encounter for closed fracture; S32.059A Unspecified fracture of fifth lumbar vertebra, initial encounter for closed fracture; I48.91 Unspecified atrial fibrillation; W19.XXXA Unspecified fall, initial encounter
CPT/HCPCS: 72131

== ENCOUNTER 2021-07-21 08:51 | Outpatient (CLI) | payer MEDICARE, OTHER | END 2021-07-21 08:52 | disposition home or self-care (01) | LOC: TBSIIMAG 08:51 | PROVIDERS: ATTEND Neurological Surgery | DX: S32.021D Stable burst fracture of second lumbar vertebra, subsequent encounter for fracture with routine healing (principal); M47.816 Spondylosis without myelopathy or radiculopathy, lumbar region; M81.0 Age-related osteoporosis without current pathological fracture; M48.8X6 Other specified spondylopathies, lumbar region | CPT/HCPCS: 72100 ==

== ENCOUNTER 2021-10-28 09:47 | Outpatient (CLI) | payer MEDICARE, OTHER | END 2021-10-28 09:48 | disposition home or self-care (01) | LOC: TBSIIMAG 09:47 | PROVIDERS: ATTEND Physician Assistant | DX: M48.56XA Collapsed vertebra, not elsewhere classified, lumbar region, initial encounter for fracture (principal); M85.88 Other specified disorders of bone density and structure, other site; M43.8X6 Other specified deforming dorsopathies, lumbar region | CPT/HCPCS: 72100 ==

== ENCOUNTER 2021-11-11 13:22 | Outpatient (CLI) | payer MEDICARE | END 2021-11-11 13:23 | disposition home or self-care (01) | LOC: BICMRI 13:22 | PROVIDERS: ATTEND Neurological Surgery | DX: Z13.820 Encounter for screening for osteoporosis (principal); M48.56XA Collapsed vertebra, not elsewhere classified, lumbar region, initial encounter for fracture | CPT/HCPCS: 70210; 72146; 72148; 77080 ==

== ENCOUNTER 2021-12-12 12:16 | Outpatient (CLI) | payer MEDICARE | END 2021-12-12 12:17 | disposition home or self-care (01) | LOC: BICCT 12:16 | PROVIDERS: ATTEND Neurological Surgery | DX: S22.008A Other fracture of unspecified thoracic vertebra, initial encounter for closed fracture (principal); M81.0 Age-related osteoporosis without current pathological fracture; R63.4 Abnormal weight loss; J98.4 Other disorders of lung; K44.9 Diaphragmatic hernia without obstruction or gangrene; K80.20 Calculus of gallbladder without cholecystitis without obstruction; N28.1 Cyst of kidney, acquired | CPT/HCPCS: 71250; 74177 ==

== ENCOUNTER 2022-02-22 14:15 | Outpatient (CLI) | payer MEDICARE, OTHER | END 2022-02-22 14:16 | disposition home or self-care (01) | LOC: SCSRAD 14:15 | PROVIDERS: ATTEND Nurse Practitioner Family | DX: I48.0 Paroxysmal atrial fibrillation (principal); K44.9 Diaphragmatic hernia without obstruction or gangrene; I51.7 Cardiomegaly; R09.89 Other specified symptoms and signs involving the circulatory and respiratory systems | CPT/HCPCS: 71046 ==

== ENCOUNTER 2022-06-01 12:17 | Inpatient (IN) | payer MEDICARE, OTHER ==
[2022-06-01] MEDS ORDERED: Furosemide 40 MG/4 ML VIAL ONE (12:40)
[2022-06-01] MEDS ORDERED: Magnesium 2 GM/50 ML BAG (IN WATER) ONE (12:40)
[2022-06-01] MEDS ORDERED: Azithromycin 500 MG VIAL ONE (12:40)
[2022-06-01] MEDS ORDERED: Aspirin Chewable 81 MG TAB ONE (12:40)
[2022-06-01] MEDS ORDERED: cefTRIAXone\\ROCEPHIN 1 GM VIAL ONE (12:40)
[2022-06-01 13:32] LABS: #Lymphocytes 0.6 thou/uL (1.20-3.40); #Monocytes 0.7 thou/uL (0.11-0.59); #Neutrophils 8.3 thou/uL (1.40-6.50); %Basophils 0.1 % (0.0-1.0); %Eosinophils 0.3 % (0.0-10.0); %Lymphocytes 6.2 % (21.0-51.0); %Monocytes 7.3 % (0.0-10.0); %Neutrophils 86.1 % (42.0-75.0); Hemoglobin 15.2 g/dL (14.0-18.0); Mean Corpuscular HGB CONC 32.3 g/dL (32.0-36.0); Mean Corpuscular Hemoglobin 31.1 pg (27.0-31.0); Mean Corpuscular Volume 96.3 fl (78.0-98.0); Mean Platelet Volume 7.4 fL (7.4-10.4); Platelet Count 292 10x3/uL (130-400); RBC Distribution Width 13.8 % (11.5-14.5); Red Blood Cell (RBC) Count 4.88 mill/uL (4.70-6.10); White Blood Cell (WBC) Count 9.7 10x3/uL (4.8-10.8)
[2022-06-01 13:45] LABS: Actual Bicarbonate (HCO3a) 21.1 mEq/L (22-28); Analyzer IN Cardio ER; Base Excess (BEa) -1.7 mEq/L (-2.0 to +3.0); CO2 Tension 30.9 mmHg (35.0-45.0); Calcium, Ionized (arterial) 1.13 mmol/L (1.12-1.30); Carboxyhemoglobin (COHb) 1.3 gm% (0.0-3.0); Hemoglobin (Hb) 15.2 g/dL (14.0-18.0); O2 Tension (PaO2), arterial 65.9 mmHg (> 70.0); Potassium - ABG Lab 3.86 mmol/L (3.70-5.30); pH, Arterial 7.45 (7.35-7.45)
[2022-06-01 13:58] LABS: ALV-art Gradient 323.275 mmHg (0-20); Puncture Site LRA
[2022-06-01 14:04] LABS: ALT (SGPT) 36 U/L (8-55); AST (SGOT) 58 U/L (5-34); Albumin 2.7 g/dL (3.4-4.8); Alkaline Phosphatase 131 U/L (40-110); Anion Gap 17 mmol/L (10-20); BUN (Urea Nitrogen) 25 mg/dL (8.4-25.7); Bilirubin, Total 1.9 mg/dL (0.2-1.2); CK (CPK) 44 U/L (30-200); Calc. Creatinine Clearance 0 mL/min (70-130); Calcium 8.1 mg/dL (7.8-10.44); Carbon Dioxide 19 mmol/L (23-31); Chloride 106 mmol/L (98-107); Estimated GFR 82; Globulin 3.5 g/dL (2.4-3.5); Glucose 128 mg/dL (83-110); Potassium 4.5 mmol/L (3.5-5.1); Protein, Total 6.2 g/dL (5.8-8.1); Sodium 137 mmol/L (136-145)
[2022-06-01 14:24] LABS: Bilirubin Negative (Negative); Blood, Urine Negative (Negative); Clarity Clear (Clear); Glucose, Urine (Dipstick) Normal (Negative); Ketone, Urine Negative (Negative); Leukocyte Negative Leu/uL (Negative); Nitrite Negative (Negative); Protein, Urine (Dipstick) Negative (Neg-Trace); Specific Gravity, Urine 1.015 (1.002-1.036); Urobilinogen Normal mg/dL (Less than 2); pH, Urine 5.5 (5.0-9.0)
[2022-06-01 14:25] LABS: SARS-CoV-2 NAA Rapid Test Not Detected (NotDetected)
[2022-06-01] MEDS ORDERED: Acetaminophen 325 MG TAB PO PRN (15:26)
[2022-06-01 16:25] LABS: Troponin I 0.017 ng/mL (< 0.028)
[2022-06-01 16:31] LABS: Lactic Acid 1.9 mmol/L (0.5-2.2)
[2022-06-01] MEDS ORDERED: predniSONE 20 MG TAB PO SCH (17:00)
[2022-06-01 17:57] LABS: Legionella Urinary Ag Negative (Negative); Strep pneumo Urine Ag NEGATIVE (NEGATIVE)
[2022-06-01] MEDS ORDERED: predniSONE 20 MG TAB ONE (18:37)
[2022-06-01] MEDS: Sodium Chloride 0.9% 1,000 ML IV SCH (18:45)
[2022-06-01 19:21] LABS: Troponin I 0.013 ng/mL (< 0.028)
[2022-06-01] MEDS: Atorvastatin Calcium 40 MG TAB PO SCH (20:35)
[2022-06-01] MEDS: Famotidine 20 MG TAB PO SCH (20:35)
[2022-06-01] MEDS: Doxycycline 100 MG in Sodium Chloride 0.9% 100 ML IVPB SCH (20:35)
[2022-06-01] MEDS: Apixaban 5 MG TAB PO SCH (20:35)
[2022-06-02 04:39] LABS: #Lymphocytes 0.3 thou/uL (1.20-3.40); #Monocytes 0.2 thou/uL (0.11-0.59); #Neutrophils 6.5 thou/uL (1.40-6.50); %Eosinophils 0.1 % (0.0-10.0); %Monocytes 2.7 % (0.0-10.0); %Neutrophils 93.3 % (42.0-75.0); Hemoglobin 13.8 g/dL (14.0-18.0); Mean Corpuscular HGB CONC 32.4 g/dL (32.0-36.0); Mean Corpuscular Volume 95.6 fl (78.0-98.0); Mean Platelet Volume 7.3 fL (7.4-10.4); Platelet Count 247 10x3/uL (130-400); RBC Distribution Width 13.5 % (11.5-14.5); Red Blood Cell (RBC) Count 4.46 mill/uL (4.70-6.10)
[2022-06-02] MEDS: Famotidine 20 MG TAB PO SCH ×2 (08:41→21:33)
[2022-06-02] MEDS: Doxycycline 100 MG in Sodium Chloride 0.9% 100 ML IVPB SCH ×2 (08:41→21:32)
[2022-06-02] MEDS: Apixaban 5 MG TAB PO SCH ×2 (08:41→21:33)
[2022-06-02] MEDS: Amiodarone 200 MG TAB PO SCH (08:41)
[2022-06-02] MEDS: Tamsulosin HCl 0.4 MG CAP PO SCH (08:41)
[2022-06-02] MEDS: cefTRIAXone\\ROCEPHIN 1 GM in Sodium Chloride 0.9% 100 ML IVPB SCH (12:14)
[2022-06-02] MEDS: Sodium Chloride 0.9% 1,000 ML IV SCH (17:36)
[2022-06-02] MEDS: Atorvastatin Calcium 40 MG TAB PO SCH (21:33)
[2022-06-03] MEDS ORDERED: Lorazepam 2 MG/ML VIAL SLOW IVP SCH (06:15)
[2022-06-03 06:16] LABS: Actual Bicarbonate (HCO3a) 23.9 mEq/L (22-28); Base Excess (BEa) -0.4 mEq/L (-2.0 to +3.0); CO2 Tension 37.8 mmHg (35.0-45.0); Calcium, Ionized (arterial) 1.15 mmol/L (1.12-1.30); Carboxyhemoglobin (COHb) 0.7 gm% (0.0-3.0); Hemoglobin (Hb) 13.8 g/dL (14.0-18.0); Potassium - ABG Lab 4.04 mmol/L (3.70-5.30); pH, Arterial 7.42 (7.35-7.45)
[2022-06-03 06:20] LABS: Puncture Site R BRACHIAL
[2022-06-03 08:37] LABS: #Lymphocytes 0.5 thou/uL (1.20-3.40); #Monocytes 0.5 thou/uL (0.11-0.59); #Neutrophils 11.5 thou/uL (1.40-6.50); %Basophils 0.1 % (0.0-1.0); %Eosinophils 0.1 % (0.0-10.0); %Lymphocytes 3.7 % (21.0-51.0); %Neutrophils 92.1 % (42.0-75.0); Hemoglobin 13.9 g/dL (14.0-18.0); Mean Corpuscular HGB CONC 31.9 g/dL (32.0-36.0); Mean Corpuscular Hemoglobin 30.8 pg (27.0-31.0); Mean Corpuscular Volume 96.5 fl (78.0-98.0); Mean Platelet Volume 6.5 fL (7.4-10.4); Platelet Count 340 10x3/uL (130-400); RBC Distribution Width 13.6 % (11.5-14.5); Red Blood Cell (RBC) Count 4.51 mill/uL (4.70-6.10); White Blood Cell (WBC) Count 12.4 10x3/uL (4.8-10.8)
[2022-06-03] MEDS: Sodium Chloride 0.9% 1,000 ML IV SCH ×2 (08:58→22:12)
[2022-06-03] MEDS: Doxycycline 100 MG in Sodium Chloride 0.9% 100 ML IVPB SCH ×2 (08:58→22:11)
[2022-06-03 09:09] LABS: ALT (SGPT) 33 U/L (8-55); AST (SGOT) 59 U/L (5-34); Albumin 2.5 g/dL (3.4-4.8); Alkaline Phosphatase 112 U/L (40-110); Anion Gap 11 mmol/L (10-20); BUN (Urea Nitrogen) 29 mg/dL (8.4-25.7); Bilirubin, Total 1.6 mg/dL (0.2-1.2); Calc. Creatinine Clearance 67 mL/min (70-130); Carbon Dioxide 21 mmol/L (23-31); Chloride 108 mmol/L (98-107); Estimated GFR 91; Glucose 100 mg/dL (83-110); Magnesium 1.9 mg/dL (1.6-2.6); Phosphorus 3.7 mg/dL (2.3-4.7); Potassium 4.2 mmol/L (3.5-5.1); Protein, Total 5.5 g/dL (5.8-8.1); Sodium 136 mmol/L (136-145)
[2022-06-03] MEDS: cefTRIAXone\\ROCEPHIN 1 GM in Sodium Chloride 0.9% 100 ML IVPB SCH (13:03)
[2022-06-03] MEDS: Famotidine 20 MG TAB PO SCH ×2 (13:03→22:08)
[2022-06-03] MEDS: methylPREDNISolone Sod Succ 40 MG VIAL IVP SCH (13:03)
[2022-06-03] MEDS: Apixaban 5 MG TAB PO SCH ×2 (13:03→22:08)
[2022-06-03] MEDS: Amiodarone 200 MG TAB PO SCH (13:04)
[2022-06-03] MEDS: Tamsulosin HCl 0.4 MG CAP PO SCH (13:04)
[2022-06-03] MEDS: Ipratropium/Albuterol 3 ML NEB NEB SCH ×2 (16:26→21:58)
[2022-06-03] MEDS: Mometasone/Formoterol 200/5 60 PUFF INH SCH (18:47)
[2022-06-03] MEDS: Atorvastatin Calcium 40 MG TAB PO SCH (22:08)
[2022-06-04] MEDS: methylPREDNISolone Sod Succ 40 MG VIAL IVP SCH ×2 (01:27→17:23)
[2022-06-04 04:31] LABS: #Lymphocytes 0.2 thou/uL (1.20-3.40); #Monocytes 0.4 thou/uL (0.11-0.59); #Neutrophils 7.1 thou/uL (1.40-6.50); %Basophils 0.1 % (0.0-1.0); %Eosinophils 0.1 % (0.0-10.0); %Lymphocytes 2.9 % (21.0-51.0); %Monocytes 4.5 % (0.0-10.0); %Neutrophils 92.4 % (42.0-75.0); Hemoglobin 13.1 g/dL (14.0-18.0); Mean Corpuscular HGB CONC 31.9 g/dL (32.0-36.0); Mean Corpuscular Hemoglobin 30.9 pg (27.0-31.0); Mean Corpuscular Volume 96.7 fl (78.0-98.0); Mean Platelet Volume 6.9 fL (7.4-10.4); Platelet Count 260 10x3/uL (130-400); RBC Distribution Width 13.5 % (11.5-14.5); Red Blood Cell (RBC) Count 4.25 mill/uL (4.70-6.10); White Blood Cell (WBC) Count 7.7 10x3/uL (4.8-10.8)
[2022-06-04 04:51] LABS: ALT (SGPT) 35 U/L (8-55); AST (SGOT) 59 U/L (5-34); Albumin 2.3 g/dL (3.4-4.8); Alkaline Phosphatase 101 U/L (40-110); Anion Gap 10 mmol/L (10-20); BUN (Urea Nitrogen) 30 mg/dL (8.4-25.7); Bilirubin, Total 1.1 mg/dL (0.2-1.2); Calc. Creatinine Clearance 69 mL/min (70-130); Calcium 8.1 mg/dL (7.8-10.44); Carbon Dioxide 22 mmol/L (23-31); Chloride 110 mmol/L (98-107); Estimated GFR 91; Glucose 119 mg/dL (83-110); Magnesium 2.1 mg/dL (1.6-2.6); Phosphorus 4.1 mg/dL (2.3-4.7); Potassium 4.4 mmol/L (3.5-5.1); Protein, Total 5.3 g/dL (5.8-8.1); Sodium 138 mmol/L (136-145)
[2022-06-04] MEDS: Ipratropium/Albuterol 3 ML NEB NEB SCH ×3 (08:30→22:12)
[2022-06-04] MEDS: Mometasone/Formoterol 200/5 60 PUFF INH SCH ×2 (08:33→18:42)
[2022-06-04] MEDS: Tamsulosin HCl 0.4 MG CAP PO SCH (08:34)
[2022-06-04] MEDS: Amiodarone 200 MG TAB PO SCH (08:34)
[2022-06-04] MEDS: Doxycycline 100 MG in Sodium Chloride 0.9% 100 ML IVPB SCH ×2 (08:35→21:32)
[2022-06-04] MEDS: Apixaban 5 MG TAB PO SCH ×2 (08:35→21:32)
[2022-06-04] MEDS: Famotidine 20 MG TAB PO SCH ×2 (08:35→21:32)
[2022-06-04] MEDS ORDERED: FLU VACC QS2022-23(65YR UP)/PF 240 MCG/0.7 ML SYRINGE IM ONE (09:00)
[2022-06-04] MEDS ORDERED: methylPREDNISolone Sod Succ 40 MG VIAL IVP SCH (12:45)
[2022-06-04] MEDS: cefTRIAXone\\ROCEPHIN 1 GM in Sodium Chloride 0.9% 100 ML IVPB SCH (13:48)
[2022-06-04] MEDS: Atorvastatin Calcium 40 MG TAB PO SCH (21:32)
[2022-06-05] MEDS: methylPREDNISolone Sod Succ 40 MG VIAL IVP SCH ×4 (01:24→17:24)
[2022-06-05] MEDS: Sodium Chloride 0.9% 1,000 ML IV SCH ×2 (01:25→22:53)
[2022-06-05 04:36] LABS: #Lymphocytes 0.3 thou/uL (1.20-3.40); #Monocytes 0.5 thou/uL (0.11-0.59); #Neutrophils 9.7 thou/uL (1.40-6.50); %Eosinophils 0.1 % (0.0-10.0); %Lymphocytes 2.5 % (21.0-51.0); %Monocytes 4.8 % (0.0-10.0); %Neutrophils 92.7 % (42.0-75.0); Hemoglobin 13.7 g/dL (14.0-18.0); Mean Corpuscular HGB CONC 33.4 g/dL (32.0-36.0); Mean Corpuscular Hemoglobin 32.3 pg (27.0-31.0); Mean Corpuscular Volume 96.7 fl (78.0-98.0); Mean Platelet Volume 6.6 fL (7.4-10.4); Platelet Count 320 10x3/uL (130-400); RBC Distribution Width 13.5 % (11.5-14.5); Red Blood Cell (RBC) Count 4.24 mill/uL (4.70-6.10); White Blood Cell (WBC) Count 10.5 10x3/uL (4.8-10.8)
[2022-06-05 05:07] LABS: Anion Gap 9 mmol/L (10-20); BUN (Urea Nitrogen) 33 mg/dL (8.4-25.7); Calc. Creatinine Clearance 73 mL/min (70-130); Carbon Dioxide 23 mmol/L (23-31); Chloride 112 mmol/L (98-107); Estimated GFR 92; Glucose 129 mg/dL (83-110); Potassium 4.1 mmol/L (3.5-5.1); Sodium 140 mmol/L (136-145)
[2022-06-05] MEDS: Ipratropium/Albuterol 3 ML NEB NEB SCH (07:47)
[2022-06-05] MEDS: Mometasone/Formoterol 200/5 60 PUFF INH SCH ×2 (07:50→18:33)
[2022-06-05] MEDS: Famotidine 20 MG TAB PO SCH ×2 (08:49→22:53)
[2022-06-05] MEDS: Doxycycline 100 MG in Sodium Chloride 0.9% 100 ML IVPB SCH ×2 (08:50→22:53)
[2022-06-05] MEDS: Apixaban 5 MG TAB PO SCH ×2 (08:50→22:52)
[2022-06-05] MEDS: Amiodarone 200 MG TAB PO SCH (08:50)
[2022-06-05] MEDS: Tamsulosin HCl 0.4 MG CAP PO SCH (08:50)
[2022-06-05] MEDS: cefTRIAXone\\ROCEPHIN 1 GM in Sodium Chloride 0.9% 100 ML IVPB SCH (13:26)
[2022-06-05] MEDS: Atorvastatin Calcium 40 MG TAB PO SCH (22:52)
[2022-06-06 02:23] LABS: Actual Bicarbonate (HCO3a) 21.8 mEq/L (22-28); Base Excess (BEa) -2.5 mEq/L (-2.0 to +3.0); CO2 Tension 36.4 mmHg (35.0-45.0); Calcium, Ionized (arterial) 1.23 mmol/L (1.12-1.30); Carboxyhemoglobin (COHb) 0.8 gm% (0.0-3.0); Hemoglobin (Hb) 14.4 g/dL (14.0-18.0); Potassium - ABG Lab 4.31 mmol/L (3.70-5.30)
[2022-06-06 02:25] LABS: Puncture Site RRA
[2022-06-06] MEDS: methylPREDNISolone Sod Succ 40 MG VIAL IVP SCH ×4 (02:54→17:18)
[2022-06-06 02:55] LABS: #Lymphocytes 0.2 thou/uL (1.20-3.40); #Monocytes 0.7 thou/uL (0.11-0.59); #Neutrophils 10.9 thou/uL (1.40-6.50); Hemoglobin 13.8 g/dL (14.0-18.0); Mean Corpuscular HGB CONC 30.7 g/dL (32.0-36.0); Mean Corpuscular Hemoglobin 29.9 pg (27.0-31.0); Mean Corpuscular Volume 97.3 fl (78.0-98.0); Mean Platelet Volume 6.8 fL (7.4-10.4); Platelet Count 342 10x3/uL (130-400); RBC Distribution Width 13.6 % (11.5-14.5); Red Blood Cell (RBC) Count 4.62 mill/uL (4.70-6.10); White Blood Cell (WBC) Count 11.9 10x3/uL (4.8-10.8)
[2022-06-06 03:42] LABS: Anion Gap 9 mmol/L (10-20); BUN (Urea Nitrogen) 35 mg/dL (8.4-25.7); Calc. Creatinine Clearance 72 mL/min (70-130); Carbon Dioxide 23 mmol/L (23-31); Chloride 113 mmol/L (98-107); Estimated GFR 91; Glucose 140 mg/dL (83-110); Magnesium 2.1 mg/dL (1.6-2.6); Phosphorus 2.7 mg/dL (2.3-4.7); Potassium 4.4 mmol/L (3.5-5.1); Sodium 141 mmol/L (136-145)
[2022-06-06] MEDS: Mometasone/Formoterol 200/5 60 PUFF INH SCH ×2 (06:57→18:40)
[2022-06-06] MEDS: Famotidine 20 MG TAB PO SCH ×2 (08:46→20:40)
[2022-06-06] MEDS: Amiodarone 200 MG TAB PO SCH (08:46)
[2022-06-06] MEDS: Tamsulosin HCl 0.4 MG CAP PO SCH (08:46)
[2022-06-06] MEDS: Apixaban 5 MG TAB PO SCH ×2 (08:46→20:41)
[2022-06-06] MEDS: Doxycycline 100 MG in Sodium Chloride 0.9% 100 ML IVPB SCH ×2 (08:47→20:40)
[2022-06-06] MEDS ORDERED: Furosemide 40 MG/4 ML VIAL ONE (09:58)
[2022-06-06] MEDS: Sodium Chloride 0.9% 1,000 ML IV SCH (10:22)
[2022-06-06] MEDS: cefTRIAXone\\ROCEPHIN 1 GM in Sodium Chloride 0.9% 100 ML IVPB SCH (14:40)
[2022-06-06] MEDS: Atorvastatin Calcium 40 MG TAB PO SCH (20:40)
[2022-06-07] MEDS: methylPREDNISolone Sod Succ 40 MG VIAL IVP SCH ×2 (01:42→05:46)
[2022-06-07] MEDS: Sodium Chloride 0.9% 1,000 ML IV SCH (03:52)
[2022-06-07] MEDS: Mometasone/Formoterol 200/5 60 PUFF INH SCH ×2 (06:20→19:13)
[2022-06-07 07:47] LABS: #Lymphocytes 0.2 thou/uL (1.20-3.40); #Monocytes 0.4 thou/uL (0.11-0.59); #Neutrophils 9.5 thou/uL (1.40-6.50); %Lymphocytes 1.7 % (21.0-51.0); %Monocytes 4.3 % (0.0-10.0); Hemoglobin 13.6 g/dL (14.0-18.0); Mean Corpuscular HGB CONC 31.7 g/dL (32.0-36.0); Mean Corpuscular Hemoglobin 30.5 pg (27.0-31.0); Mean Platelet Volume 6.9 fL (7.4-10.4); Platelet Count 258 10x3/uL (130-400); RBC Distribution Width 13.6 % (11.5-14.5); Red Blood Cell (RBC) Count 4.48 mill/uL (4.70-6.10); White Blood Cell (WBC) Count 10.1 10x3/uL (4.8-10.8)
[2022-06-07 08:10] LABS: Anion Gap 8 mmol/L (10-20); BUN (Urea Nitrogen) 39 mg/dL (8.4-25.7); Calc. Creatinine Clearance 75 mL/min (70-130); Calcium 8.1 mg/dL (7.8-10.44); Carbon Dioxide 29 mmol/L (23-31); Chloride 111 mmol/L (98-107); Estimated GFR 92; Glucose 143 mg/dL (83-110); Magnesium 2.1 mg/dL (1.6-2.6); Phosphorus 3.6 mg/dL (2.3-4.7); Potassium 4.1 mmol/L (3.5-5.1); Sodium 144 mmol/L (136-145)
[2022-06-07] MEDS: Famotidine 20 MG TAB PO SCH ×2 (08:20→21:08)
[2022-06-07] MEDS: Amiodarone 200 MG TAB PO SCH (08:20)
[2022-06-07] MEDS: Apixaban 5 MG TAB PO SCH ×2 (08:20→21:08)
[2022-06-07] MEDS: Tamsulosin HCl 0.4 MG CAP PO SCH (08:20)
[2022-06-07] MEDS: Doxycycline 100 MG in Sodium Chloride 0.9% 100 ML IVPB SCH (08:21)
[2022-06-07] MEDS ORDERED: Furosemide 100 MG/10 ML VIAL SLOW IVP SCH (09:00)
[2022-06-07] MEDS: Atorvastatin Calcium 40 MG TAB PO SCH (21:08)
[2022-06-08 04:09] LABS: #Lymphocytes 0.3 thou/uL (1.20-3.40); #Monocytes 1.2 thou/uL (0.11-0.59); #Neutrophils 14.6 thou/uL (1.40-6.50); %Lymphocytes 2.1 % (21.0-51.0); %Monocytes 7.2 % (0.0-10.0); %Neutrophils 90.7 % (42.0-75.0); Hemoglobin 14.6 g/dL (14.0-18.0); Mean Corpuscular HGB CONC 30.6 g/dL (32.0-36.0); Mean Corpuscular Hemoglobin 29.6 pg (27.0-31.0); Mean Corpuscular Volume 96.5 fl (78.0-98.0); Platelet Count 288 10x3/uL (130-400); RBC Distribution Width 13.9 % (11.5-14.5); Red Blood Cell (RBC) Count 4.93 mill/uL (4.70-6.10); White Blood Cell (WBC) Count 16.1 10x3/uL (4.8-10.8)
[2022-06-08] MEDS: Sodium Chloride 0.9% 1,000 ML IV SCH ×2 (04:24→23:59)
[2022-06-08 04:31] LABS: Anion Gap 8 mmol/L (10-20); BUN (Urea Nitrogen) 45 mg/dL (8.4-25.7); Calc. Creatinine Clearance 63 mL/min (70-130); Calcium 8.1 mg/dL (7.8-10.44); Carbon Dioxide 31 mmol/L (23-31); Chloride 107 mmol/L (98-107); Estimated GFR 87; Glucose 107 mg/dL (83-110); Potassium 3.9 mmol/L (3.5-5.1); Sodium 142 mmol/L (136-145)
[2022-06-08] MEDS: Mometasone/Formoterol 200/5 60 PUFF INH SCH ×2 (06:52→18:42)
[2022-06-08] MEDS ORDERED: methylPREDNISolone Sod Succ 40 MG VIAL IVP SCH (09:00)
[2022-06-08] MEDS: Apixaban 5 MG TAB PO SCH ×2 (10:18→21:37)
[2022-06-08] MEDS: Famotidine 20 MG TAB PO SCH (10:18)
[2022-06-08] MEDS: Tamsulosin HCl 0.4 MG CAP PO SCH (10:18)
[2022-06-08] MEDS: Amiodarone 200 MG TAB PO SCH (10:18)
[2022-06-08] MEDS: Lactated Ringer's 1,000 ML IV SCH (10:45)
[2022-06-08 11:27] LABS: Actual Bicarbonate (HCO3a) 30.7 mEq/L (22-28); Base Excess (BEa) 6.4 mEq/L (-2.0 to +3.0); CO2 Tension 42.6 mmHg (35.0-45.0); Calcium, Ionized (arterial) 1.17 mmol/L (1.12-1.30); Carboxyhemoglobin (COHb) 1.2 gm% (0.0-3.0); Hemoglobin (Hb) 15.5 g/dL (14.0-18.0); Potassium - ABG Lab 3.92 mmol/L (3.70-5.30); pH, Arterial 7.48 (7.35-7.45)
[2022-06-08 11:42] LABS: O2 Tension (PaO2), arterial 43.1 mmHg (> 70.0)
[2022-06-08 11:43] LABS: Puncture Site RRA
[2022-06-08] MEDS ORDERED: Ipratropium/Albuterol 3 ML NEB NEB SCH (12:30)
[2022-06-08] MEDS ORDERED: Furosemide 40 MG/4 ML VIAL SLOW IVP SCH (13:00)
[2022-06-08] MEDS: methylPREDNISolone Sod Succ 40 MG VIAL IVP SCH ×3 (13:59→23:59)
[2022-06-08 14:08] LABS: Base Excess (BEa) 5.9 mEq/L (-2.0 to +3.0); CO2 Tension 46.3 mmHg (35.0-45.0); Calcium, Ionized (arterial) 1.19 mmol/L (1.12-1.30); Carboxyhemoglobin (COHb) 1.3 gm% (0.0-3.0); Hemoglobin (Hb) 15.7 g/dL (14.0-18.0); O2 Tension (PaO2), arterial 67.9 mmHg (> 70.0); Potassium - ABG Lab 4.21 mmol/L (3.70-5.30); pH, Arterial 7.44 (7.35-7.45)
[2022-06-08 14:20] LABS: ALV-art Gradient 587.225 mmHg (0-20); Puncture Site LRA
[2022-06-08] MEDS: Ipratropium/Albuterol 3 ML NEB IPPB SCH ×3 (14:53→22:21)
[2022-06-08] MEDS ORDERED: Electrolyte Replacement Protocol 1 EACH FS ONE (17:06)
[2022-06-08] MEDS ORDERED: Ventilator Sedation Protocol 1 EACH FS SCH ×2 (17:15→17:45)
[2022-06-08] MEDS ORDERED: Electrolyte Replacement Protocol FS PRN (17:15)
[2022-06-08] MEDS ORDERED: Propofol 1,000 MG/100 ML VIAL IV ONE (17:22)
[2022-06-08] MEDS ORDERED: Propofol BOLUS 1,000 MG/100 ML VIAL IV PRN ×2 (17:30→18:00)
[2022-06-08] MEDS ORDERED: DISCONTINUE PREVIOUS NARCOTIC PAIN MEDICATIONS AND BENZODIAZEPINES FS SCH ×2 (17:30→18:00)
[2022-06-08] MEDS ORDERED: Fentanyl BOLUS 250 ML IVPB PRN (17:30)
[2022-06-08] MEDS ORDERED: Morphine 4 MG/ML VIAL SLOW IVP PRN ×2 (17:30→18:00)
[2022-06-08] MEDS: PROPOFOL 200 MG/20 ML VIAL IV SCH ×2 (17:40→20:02)
[2022-06-08] MEDS: Propofol 1,000 MG/100 ML VIAL IV PRN (17:40)
[2022-06-08] MEDS ORDERED: Midazolam HCl 2 mg/2 ml Vial ONE (17:42)
[2022-06-08] MEDS ORDERED: Midazolam HCl 2 mg/2 ml Vial SLOW IVP PRN (18:00)
[2022-06-08] MEDS ORDERED: Propofol 1,000 MG/100 ML VIAL IV PRN (18:00)
[2022-06-08] MEDS ORDERED: Fentanyl CADD 100 ML ONE (18:27)
[2022-06-08] MEDS: Fentanyl CADD 100 ML IV SCH (18:30)
[2022-06-08] MEDS: Atorvastatin Calcium 40 MG TAB PO SCH (21:37)
[2022-06-09] MEDS: Ipratropium/Albuterol 3 ML NEB IPPB SCH ×6 (02:04→21:50)
[2022-06-09] MEDS: Propofol 1,000 MG/100 ML VIAL IV PRN (02:21)
[2022-06-09 03:56] LABS: #Lymphocytes 0.1 thou/uL (1.20-3.40); #Monocytes 0.5 thou/uL (0.11-0.59); #Neutrophils 15.6 thou/uL (1.40-6.50); %Basophils 0.1 % (0.0-1.0); %Eosinophils 0.1 % (0.0-10.0); %Lymphocytes 0.8 % (21.0-51.0); %Monocytes 2.9 % (0.0-10.0); %Neutrophils 96.1 % (42.0-75.0); Hemoglobin 14.5 g/dL (14.0-18.0); Mean Corpuscular HGB CONC 31.1 g/dL (32.0-36.0); Mean Corpuscular Hemoglobin 29.9 pg (27.0-31.0); Mean Corpuscular Volume 96.3 fl (78.0-98.0); Mean Platelet Volume 7.5 fL (7.4-10.4); Platelet Count 209 10x3/uL (130-400); RBC Distribution Width 13.9 % (11.5-14.5); Red Blood Cell (RBC) Count 4.85 mill/uL (4.70-6.10); White Blood Cell (WBC) Count 16.2 10x3/uL (4.8-10.8)
[2022-06-09 04:28] LABS: ALT (SGPT) 99 U/L (8-55); AST (SGOT) 100 U/L (5-34); Albumin 2.2 g/dL (3.4-4.8); Alkaline Phosphatase 121 U/L (40-110); Anion Gap 10 mmol/L (10-20); BUN (Urea Nitrogen) 51 mg/dL (8.4-25.7); Bilirubin, Total 1.4 mg/dL (0.2-1.2); Calc. Creatinine Clearance 66 mL/min (70-130); Carbon Dioxide 30 mmol/L (23-31); Chloride 108 mmol/L (98-107); Estimated GFR 88; Globulin 2.6 g/dL (2.4-3.5); Glucose 124 mg/dL (83-110); Magnesium 2.3 mg/dL (1.6-2.6); Phosphorus 4.5 mg/dL (2.3-4.7); Potassium 4.7 mmol/L (3.5-5.1); Protein, Total 4.8 g/dL (5.8-8.1); Sodium 143 mmol/L (136-145)
[2022-06-09] MEDS: methylPREDNISolone Sod Succ 40 MG VIAL IVP SCH ×3 (05:41→17:30)
[2022-06-09] MEDS ORDERED: Fentanyl CADD 100 ML ONE ×2 (06:50→21:16)
[2022-06-09 06:51] LABS: Base Excess (BEa) 4.5 mEq/L (-2.0 to +3.0); Calcium, Ionized (arterial) 1.23 mmol/L (1.12-1.30); Carboxyhemoglobin (COHb) 1.2 gm% (0.0-3.0); Hemoglobin (Hb) 14.9 g/dL (14.0-18.0); O2 Tension (PaO2), arterial 64.7 mmHg (> 70.0); Potassium - ABG Lab 4.76 mmol/L (3.70-5.30); pH, Arterial 7.31 (7.35-7.45)
[2022-06-09 06:56] LABS: CO2 Tension 66.4 mmHg (35.0-45.0); Puncture Site RBA
[2022-06-09] MEDS: Fentanyl CADD 100 ML IV SCH ×2 (06:56→21:20)
[2022-06-09] MEDS: Mometasone/Formoterol 200/5 60 PUFF INH SCH ×2 (06:57→18:47)
[2022-06-09] MEDS: Tamsulosin HCl 0.4 MG CAP PO SCH (09:16)
[2022-06-09] MEDS: Apixaban 5 MG TAB PO SCH ×2 (09:16→20:59)
[2022-06-09] MEDS: Amiodarone 200 MG TAB PO SCH (09:16)
[2022-06-09] MEDS: Lactated Ringer's 1,000 ML IV SCH ×2 (09:17→17:31)
[2022-06-09] MEDS: Pantoprazole 40 MG VIAL IVP SCH (09:17)
[2022-06-09] MEDS: NOREPINEPHRINE 8 MG/250 ML-D5W 250 ML IVPB SCH (11:40)
[2022-06-09] MEDS ORDERED: Lactated Ringer's 500 ML IV SCH (14:15)
[2022-06-09] MEDS: Midazolam HCl 2 mg/2 ml Vial SLOW IVP PRN (14:47)
[2022-06-09] MEDS: Atorvastatin Calcium 40 MG TAB PO SCH (20:59)
[2022-06-10] MEDS: methylPREDNISolone Sod Succ 40 MG VIAL IVP SCH ×4 (00:06→17:38)
[2022-06-10] MEDS: Ipratropium/Albuterol 3 ML NEB IPPB SCH ×6 (02:09→22:18)
[2022-06-10 05:01] LABS: Hemoglobin 12.6 g/dL (14.0-18.0); Mean Corpuscular HGB CONC 30.1 g/dL (32.0-36.0); Mean Corpuscular Hemoglobin 29.6 pg (27.0-31.0); Mean Corpuscular Volume 98.4 fl (78.0-98.0); Mean Platelet Volume 8.7 fL (7.4-10.4); Platelet Count 203 10x3/uL (130-400); RBC Distribution Width 13.9 % (11.5-14.5); Red Blood Cell (RBC) Count 4.27 mill/uL (4.70-6.10); White Blood Cell (WBC) Count 15.9 10x3/uL (4.8-10.8)
[2022-06-10 05:21] LABS: MDiff Complete? YES
[2022-06-10 05:22] LABS: Band 2 % (5-11); Lymphocytes 2 % (21-51); Monocytes 5 % (0-10); Neutrophil 91 % (42-75)
[2022-06-10] MEDS: Mometasone/Formoterol 200/5 60 PUFF INH SCH ×2 (06:32→18:09)
[2022-06-10 06:51] LABS: Actual Bicarbonate (HCO3a) 31.9 mEq/L (22-28); Base Excess (BEa) 4.3 mEq/L (-2.0 to +3.0); Calcium, Ionized (arterial) 1.21 mmol/L (1.12-1.30); Carboxyhemoglobin (COHb) 0.5 gm% (0.0-3.0); Hemoglobin (Hb) 13.6 g/dL (14.0-18.0); O2 Tension (PaO2), arterial 72.6 mmHg (> 70.0); pH, Arterial 7.33 (7.35-7.45)
[2022-06-10 06:58] LABS: ALV-art Gradient 207.025 mmHg (0-20); CO2 Tension 61.5 mmHg (35.0-45.0); Puncture Site RRA
[2022-06-10 07:36] LABS: Albumin 2.4 g/dL (3.4-4.8)
[2022-06-10 07:37] LABS: Chloride 108 mmol/L (98-107); Potassium 4.8 mmol/L (3.5-5.1); Sodium 142 mmol/L (136-145)
[2022-06-10 07:38] LABS: Calcium 8.1 mg/dL (7.8-10.44)
[2022-06-10 07:39] LABS: Globulin 2.2 g/dL (2.4-3.5); Glucose 169 mg/dL (83-110); Protein, Total 4.6 g/dL (5.8-8.1)
[2022-06-10 07:40] LABS: Anion Gap 11 mmol/L (10-20); Bilirubin, Total 1.3 mg/dL (0.2-1.2); Carbon Dioxide 28 mmol/L (23-31)
[2022-06-10 07:41] LABS: Alkaline Phosphatase 94 U/L (40-110)
[2022-06-10 07:42] LABS: Calc. Creatinine Clearance 47 mL/min (70-130); Estimated GFR 70; Phosphorus 3.7 mg/dL (2.3-4.7)
[2022-06-10 07:43] LABS: BUN (Urea Nitrogen) 64 mg/dL (8.4-25.7)
[2022-06-10 07:44] LABS: ALT (SGPT) 90 U/L (8-55); AST (SGOT) 79 U/L (5-34); Magnesium 2.3 mg/dL (1.6-2.6)
[2022-06-10] MEDS: Tamsulosin HCl 0.4 MG CAP PO SCH (08:48)
[2022-06-10] MEDS: Amiodarone 200 MG TAB PO SCH (08:48)
[2022-06-10] MEDS: Apixaban 5 MG TAB PO SCH ×2 (08:48→20:25)
[2022-06-10] MEDS: Pantoprazole 40 MG VIAL IVP SCH (08:48)
[2022-06-10] MEDS: Midazolam HCl 2 mg/2 ml Vial SLOW IVP PRN ×3 (08:51→20:25)
[2022-06-10] MEDS: Lactated Ringer's 1,000 ML IV SCH (09:57)
[2022-06-10] MEDS: NOREPINEPHRINE 8 MG/250 ML-D5W 250 ML IVPB SCH (11:04)
[2022-06-10] MEDS ORDERED: Dextrose 5% in Water 1,000 ML IV PRN (13:00)
[2022-06-10] MEDS ORDERED: Dextrose 50% Abboject 50 ML SYRINGE IVP PRN (13:00)
[2022-06-10] MEDS: HumaLOG 300 UNITS/3 ML VIAL SC PRN (13:30)
[2022-06-10] MEDS ORDERED: Fentanyl CADD 100 ML ONE (14:19)
[2022-06-10] MEDS: Fentanyl CADD 100 ML IV SCH (14:23)
[2022-06-10] MEDS: Atorvastatin Calcium 40 MG TAB PO SCH (20:25)
[2022-06-11] MEDS: Lactated Ringer's 1,000 ML IV SCH ×2 (00:31→13:52)
[2022-06-11] MEDS: methylPREDNISolone Sod Succ 40 MG VIAL IVP SCH ×5 (00:32→23:00)
[2022-06-11] MEDS: Ipratropium/Albuterol 3 ML NEB IPPB SCH ×6 (02:31→21:43)
[2022-06-11] MEDS: Midazolam HCl 2 mg/2 ml Vial SLOW IVP PRN ×7 (04:00→22:55)
[2022-06-11 04:02] LABS: Hemoglobin 12.3 g/dL (14.0-18.0); Mean Corpuscular HGB CONC 30.5 g/dL (32.0-36.0); Mean Corpuscular Hemoglobin 29.5 pg (27.0-31.0); Mean Corpuscular Volume 96.6 fl (78.0-98.0); Mean Platelet Volume 8.7 fL (7.4-10.4); Platelet Count 153 10x3/uL (130-400); RBC Distribution Width 13.7 % (11.5-14.5); Red Blood Cell (RBC) Count 4.19 mill/uL (4.70-6.10); White Blood Cell (WBC) Count 17.5 10x3/uL (4.8-10.8)
[2022-06-11 04:03] LABS: ALT (SGPT) 80 U/L (8-55); AST (SGOT) 68 U/L (5-34); Albumin 2.2 g/dL (3.4-4.8); Alkaline Phosphatase 83 U/L (40-110); Anion Gap 8 mmol/L (10-20); BUN (Urea Nitrogen) 71 mg/dL (8.4-25.7); Band 1 % (5-11); Bilirubin, Total 1.1 mg/dL (0.2-1.2); Calc. Creatinine Clearance 52 mL/min (70-130); Carbon Dioxide 31 mmol/L (23-31); Chloride 109 mmol/L (98-107); Estimated GFR 78; Globulin 2.2 g/dL (2.4-3.5); Glucose 167 mg/dL (83-110); MDiff Complete? YES; Magnesium 2.4 mg/dL (1.6-2.6); Monocytes 1 % (0-10); Neutrophil 98 % (42-75); Phosphorus 3.3 mg/dL (2.3-4.7); Potassium 4.7 mmol/L (3.5-5.1); Protein, Total 4.4 g/dL (5.8-8.1); Sodium 143 mmol/L (136-145)
[2022-06-11] MEDS ORDERED: Fentanyl CADD 100 ML ONE ×2 (05:24→20:02)
[2022-06-11] MEDS: Fentanyl CADD 100 ML IV SCH ×2 (05:28→20:10)
[2022-06-11] MEDS: HumaLOG 300 UNITS/3 ML VIAL SC PRN ×2 (06:27→13:05)
[2022-06-11] MEDS: Mometasone/Formoterol 200/5 60 PUFF INH SCH ×2 (06:40→18:15)
[2022-06-11] MEDS: Amiodarone 200 MG TAB PO SCH (08:40)
[2022-06-11] MEDS: Tamsulosin HCl 0.4 MG CAP PO SCH (08:40)
[2022-06-11] MEDS: Apixaban 5 MG TAB PO SCH ×2 (08:40→20:18)
[2022-06-11] MEDS: Pantoprazole 40 MG VIAL IVP SCH (08:57)
[2022-06-11] MEDS: Polyethylene Glycol 3350 17 GM Packet PO PRN (12:16)
[2022-06-11] MEDS: Atorvastatin Calcium 40 MG TAB PO SCH (20:18)
[2022-06-12] MEDS: Ipratropium/Albuterol 3 ML NEB IPPB SCH ×6 (02:44→21:41)
[2022-06-12 05:00] LABS: Hemoglobin 13.1 g/dL (14.0-18.0); Mean Corpuscular HGB CONC 30.5 g/dL (32.0-36.0); Mean Corpuscular Hemoglobin 29.8 pg (27.0-31.0); Mean Corpuscular Volume 97.7 fl (78.0-98.0); Mean Platelet Volume 9.1 fL (7.4-10.4); Platelet Count 129 10x3/uL (130-400); RBC Distribution Width 13.6 % (11.5-14.5); Red Blood Cell (RBC) Count 4.41 mill/uL (4.70-6.10); White Blood Cell (WBC) Count 17.3 10x3/uL (4.8-10.8)
[2022-06-12 05:16] LABS: Phosphorus 3.8 mg/dL (2.3-4.7)
[2022-06-12 05:22] LABS: ALT (SGPT) 82 U/L (8-55); AST (SGOT) 73 U/L (5-34); Albumin 2.3 g/dL (3.4-4.8); Alkaline Phosphatase 93 U/L (40-110); Anion Gap 10 mmol/L (10-20); BUN (Urea Nitrogen) 85 mg/dL (8.4-25.7); Bilirubin, Total 1.4 mg/dL (0.2-1.2); Calc. Creatinine Clearance 51 mL/min (70-130); Calcium 7.9 mg/dL (7.8-10.44); Carbon Dioxide 29 mmol/L (23-31); Chloride 107 mmol/L (98-107); Estimated GFR 71; Globulin 2.2 g/dL (2.4-3.5); Glucose 174 mg/dL (83-110); Magnesium 2.4 mg/dL (1.6-2.6); Potassium 4.6 mmol/L (3.5-5.1); Protein, Total 4.5 g/dL (5.8-8.1); Sodium 141 mmol/L (136-145)
[2022-06-12] MEDS: Lactated Ringer's 1,000 ML IV SCH ×2 (05:43→18:16)
[2022-06-12] MEDS: methylPREDNISolone Sod Succ 40 MG VIAL IVP SCH ×4 (05:43→23:50)
[2022-06-12 05:48] LABS: Band 2 % (5-11); Lymphocytes 1 % (21-51); MDiff Complete? YES; Monocytes 3 % (0-10); Neutrophil 94 % (42-75)
[2022-06-12] MEDS: HumaLOG 300 UNITS/3 ML VIAL SC PRN ×2 (06:02→18:24)
[2022-06-12] MEDS: Mometasone/Formoterol 200/5 60 PUFF INH SCH ×2 (06:59→18:14)
[2022-06-12 07:43] LABS: Actual Bicarbonate (HCO3a) 29.1 mEq/L (22-28); Analyzer IN Cardio ER; Base Excess (BEa) 1.8 mEq/L (-2.0 to +3.0); CO2 Tension 56.5 mmHg (35.0-45.0); Calcium, Ionized (arterial) 1.15 mmol/L (1.12-1.30); Carboxyhemoglobin (COHb) 0.7 gm% (0.0-3.0); Hemoglobin (Hb) 14.2 g/dL (14.0-18.0); Potassium - ABG Lab 4.49 mmol/L (3.70-5.30); pH, Arterial 7.33 (7.35-7.45)
[2022-06-12 08:14] LABS: ALV-art Gradient 234.175 mmHg (0-20); O2 Tension (PaO2), arterial 51.7 mmHg (> 70.0); Puncture Site RRA
[2022-06-12] MEDS: Tamsulosin HCl 0.4 MG CAP PO SCH (08:34)
[2022-06-12] MEDS: Polyethylene Glycol 3350 17 GM Packet PO PRN (08:34)
[2022-06-12] MEDS: Pantoprazole 40 MG VIAL IVP SCH (08:34)
[2022-06-12] MEDS: Apixaban 5 MG TAB PO SCH ×2 (08:34→21:42)
[2022-06-12] MEDS: Amiodarone 200 MG TAB PO SCH (08:34)
[2022-06-12] MEDS: Midazolam HCl 2 mg/2 ml Vial SLOW IVP PRN ×4 (08:49→19:50)
[2022-06-12] MEDS ORDERED: Fentanyl CADD 100 ML ONE (10:38)
[2022-06-12] MEDS: Fentanyl CADD 100 ML IV SCH (10:40)
[2022-06-12] MEDS: Albumin 25% 25 GM/100 ML BOT IVPB SCH ×3 (11:08→23:50)
[2022-06-12] MEDS: Atorvastatin Calcium 40 MG TAB PO SCH (21:42)
[2022-06-13] MEDS: Midazolam HCl 2 mg/2 ml Vial SLOW IVP PRN ×5 (00:10→13:22)
[2022-06-13] MEDS ORDERED: Fentanyl CADD 100 ML ONE (00:14)
[2022-06-13] MEDS: Fentanyl CADD 100 ML IV SCH ×2 (00:15→15:09)
[2022-06-13] MEDS: Ipratropium/Albuterol 3 ML NEB IPPB SCH ×7 (01:38→23:59)
[2022-06-13 04:25] LABS: Hemoglobin 10.8 g/dL (14.0-18.0); Mean Corpuscular HGB CONC 31.8 g/dL (32.0-36.0); Mean Corpuscular Hemoglobin 30.7 pg (27.0-31.0); Mean Corpuscular Volume 96.8 fl (78.0-98.0); RBC Distribution Width 13.7 % (11.5-14.5); Red Blood Cell (RBC) Count 3.53 mill/uL (4.70-6.10)
[2022-06-13 04:36] LABS: Anion Gap 11 mmol/L (10-20); BUN (Urea Nitrogen) 107 mg/dL (8.4-25.7); Calc. Creatinine Clearance 42 mL/min (70-130); Calcium 7.9 mg/dL (7.8-10.44); Carbon Dioxide 29 mmol/L (23-31); Chloride 109 mmol/L (98-107); Estimated GFR 55; Glucose 148 mg/dL (83-110); Potassium 5.2 mmol/L (3.5-5.1); Sodium 144 mmol/L (136-145)
[2022-06-13] MEDS: methylPREDNISolone Sod Succ 40 MG VIAL IVP SCH ×3 (05:13→17:38)
[2022-06-13] MEDS: Albumin 25% 25 GM/100 ML BOT IVPB SCH (05:13)
[2022-06-13] MEDS: Lactated Ringer's 1,000 ML IV SCH ×3 (05:17→20:51)
[2022-06-13 05:19] LABS: #Lymphocytes 0.2 thou/uL (1.20-3.40); #Monocytes 0.6 thou/uL (0.11-0.59); #Neutrophils 11.3 thou/uL (1.40-6.50); %Basophils 0.1 % (0.0-1.0); %Lymphocytes 1.3 % (21.0-51.0); %Monocytes 4.8 % (0.0-10.0); %Neutrophils 93.8 % (42.0-75.0); MDiff Complete? YES; Mean Platelet Volume 10.2 fL (7.4-10.4); Ovalocytes SLIGHT = 2-5 cells (100X) (0-1/hpf); Platelet Count 73 10x3/uL (130-400); Platelet Morphology Comment Appears Decreased
[2022-06-13] MEDS: Mometasone/Formoterol 200/5 60 PUFF INH SCH ×2 (07:18→18:19)
[2022-06-13] MEDS: Pantoprazole 40 MG VIAL IVP SCH (07:42)
[2022-06-13] MEDS: Tamsulosin HCl 0.4 MG CAP PO SCH (07:43)
[2022-06-13] MEDS: Apixaban 5 MG TAB PO SCH ×2 (07:43→20:48)
[2022-06-13] MEDS: Amiodarone 200 MG TAB PO SCH (07:43)
[2022-06-13] MEDS ORDERED: Furosemide 100 MG/10 ML VIAL SLOW IVP SCH ×2 (08:00→14:00)
[2022-06-13] MEDS: Dexmedetomidine 1,000 MCG in Sodium Chloride 0.9% 250 ML 240 ML IVPB SCH (10:33)
[2022-06-13 14:11] VITALS: BMI 23.8
[2022-06-13] MEDS: HumaLOG 300 UNITS/3 ML VIAL SC PRN (17:39)
[2022-06-13] MEDS: Atorvastatin Calcium 40 MG TAB PO SCH (20:48)
[2022-06-14] MEDS: methylPREDNISolone Sod Succ 40 MG VIAL IVP SCH ×5 (00:04→23:55)
[2022-06-14] MEDS: Midazolam HCl 2 mg/2 ml Vial SLOW IVP PRN ×2 (00:58→03:59)
[2022-06-14] MEDS: Dexmedetomidine 1,000 MCG in Sodium Chloride 0.9% 250 ML 240 ML IVPB SCH ×2 (04:13→17:29)
[2022-06-14] MEDS: NOREPINEPHRINE 8 MG/250 ML-D5W 250 ML IVPB SCH (05:15)
[2022-06-14] MEDS: Ipratropium/Albuterol 3 ML NEB IPPB SCH ×5 (08:04→21:33)
[2022-06-14] MEDS: Mometasone/Formoterol 200/5 60 PUFF INH SCH ×2 (08:05→18:10)
[2022-06-14 08:34] LABS: Hemoglobin 11.3 g/dL (14.0-18.0); Mean Corpuscular HGB CONC 31.4 g/dL (32.0-36.0); Mean Corpuscular Hemoglobin 29.8 pg (27.0-31.0); Mean Corpuscular Volume 94.9 fl (78.0-98.0); Mean Platelet Volume 10.3 fL (7.4-10.4); Platelet Count 88 10x3/uL (130-400); RBC Distribution Width 14.1 % (11.5-14.5); Red Blood Cell (RBC) Count 3.79 mill/uL (4.70-6.10); White Blood Cell (WBC) Count 25.2 10x3/uL (4.8-10.8)
[2022-06-14 08:49] LABS: Anion Gap 13 mmol/L (10-20); Calc. Creatinine Clearance 30 mL/min (70-130); Calcium 7.8 mg/dL (7.8-10.44); Carbon Dioxide 28 mmol/L (23-31); Chloride 109 mmol/L (98-107); Estimated GFR 34; Glucose 156 mg/dL (83-110); Potassium 5.8 mmol/L (3.5-5.1); Sodium 144 mmol/L (136-145)
[2022-06-14 08:55] LABS: BUN (Urea Nitrogen) 152 mg/dL (8.4-25.7)
[2022-06-14] MEDS: Tamsulosin HCl 0.4 MG CAP PO SCH (09:25)
[2022-06-14] MEDS: Amiodarone 200 MG TAB PO SCH (09:25)
[2022-06-14] MEDS: Apixaban 5 MG TAB PO SCH ×2 (09:25→21:32)
[2022-06-14] MEDS: Pantoprazole 40 MG VIAL IVP SCH (09:26)
[2022-06-14 09:40] LABS: Band 3 % (5-11); Lymphocytes 3 % (21-51); MDiff Complete? YES; Neutrophil 94 % (42-75); Platelet Morphology Comment Appears Decreased; Polychromasia SLIGHT = 2-3 cells (100X) (0-2/hpf)
[2022-06-14] MEDS: Lactated Ringer's 1,000 ML IV SCH ×2 (10:59→23:05)
[2022-06-14] MEDS: HumaLOG 300 UNITS/3 ML VIAL SC PRN ×2 (11:02→21:41)
[2022-06-14] MEDS: Fentanyl CADD 100 ML IV SCH (11:57)
[2022-06-14] MEDS: Atorvastatin Calcium 40 MG TAB PO SCH (21:32)
[2022-06-14 23:28] LABS: Actual Bicarbonate (HCO3v) 26 mEq/L (22-28); Base Excess 0.1 mEq/L (-2.0 to +3.0); Calcium, Ionized (venous) 1.03 mmol/L (1.16-1.32); Chloride (VBG) 107 mmol/L (98-106); Hemoglobin (Hb) 11.8 g/dL (12.6-17.4); Potassium (VBG) 5.92 mmol/L (3.70-5.30); Sodium 138.8 mmol/L (133-146); pH (venous) 7.36 (7.32-7.43)
[2022-06-14 23:51] LABS: ALT (SGPT) 60 U/L (8-55); AST (SGOT) 70 U/L (5-34); Albumin 2.2 g/dL (3.4-4.8); Alkaline Phosphatase 62 U/L (40-110); Anion Gap 15 mmol/L (10-20); Bilirubin, Total 1.8 mg/dL (0.2-1.2); Calc. Creatinine Clearance 26 mL/min (70-130); Calcium 7.6 mg/dL (7.8-10.44); Carbon Dioxide 24 mmol/L (23-31); Chloride 109 mmol/L (98-107); Estimated GFR 29; Globulin 1.6 g/dL (2.4-3.5); Glucose 178 mg/dL (83-110); Lactic Acid 1.5 mmol/L (0.5-2.2); Protein, Total 3.8 g/dL (5.8-8.1); Sodium 142 mmol/L (136-145)
[2022-06-14 23:54] LABS: Potassium 6.2 mmol/L (3.5-5.1)
[2022-06-15 00:03] LABS: BUN (Urea Nitrogen) 189 mg/dL (8.4-25.7)
[2022-06-15] MEDS: Fentanyl CADD 100 ML IV SCH (00:14)
[2022-06-15] MEDS ORDERED: CALCIUM GLUC 1 GM/NS 50 ML 1 GM in Premix Bag 1 BAG IVPB SCH (00:45)
[2022-06-15] MEDS ORDERED: LOKELMA 10 GM PACKET PER TUBE SCH (00:45)
[2022-06-15] MEDS: NOREPINEPHRINE 8 MG/250 ML-D5W 250 ML IVPB SCH ×2 (01:34→02:37)
[2022-06-15] MEDS: Ipratropium/Albuterol 3 ML NEB IPPB SCH ×3 (01:52→10:23)
[2022-06-15] MEDS: HumaLOG 300 UNITS/3 ML VIAL SC PRN (04:33)
[2022-06-15 05:11] LABS: Hemoglobin 11.1 g/dL (14.0-18.0); Mean Corpuscular HGB CONC 31.5 g/dL (32.0-36.0); Mean Corpuscular Hemoglobin 30.1 pg (27.0-31.0); Mean Corpuscular Volume 95.4 fl (78.0-98.0); Mean Platelet Volume 11.8 fL (7.4-10.4); Platelet Count 101 10x3/uL (130-400); RBC Distribution Width 14.2 % (11.5-14.5); Red Blood Cell (RBC) Count 3.69 mill/uL (4.70-6.10); White Blood Cell (WBC) Count 37.3 10x3/uL (4.8-10.8)
[2022-06-15 05:15] LABS: Anion Gap 14 mmol/L (10-20); Calc. Creatinine Clearance 25 mL/min (70-130); Calcium 7.5 mg/dL (7.8-10.44); Carbon Dioxide 25 mmol/L (23-31); Chloride 108 mmol/L (98-107); Estimated GFR 28; Glucose 176 mg/dL (83-110); Sodium 141 mmol/L (136-145)
[2022-06-15 05:21] LABS: Potassium 6.2 mmol/L (3.5-5.1)
[2022-06-15 05:26] LABS: BUN (Urea Nitrogen) 169 mg/dL (8.4-25.7)
[2022-06-15] MEDS: methylPREDNISolone Sod Succ 40 MG VIAL IVP SCH (05:57)
[2022-06-15 05:59] LABS: Band 4 % (5-11); Lymphocytes 4 % (21-51); MDiff Complete? YES; Monocytes 1 % (0-10); Neutrophil 91 % (42-75); Platelet Morphology Comment Appears Decreased
[2022-06-15] MEDS: Mometasone/Formoterol 200/5 60 PUFF INH SCH (06:52)
[2022-06-15 08:07] VITALS: TEMP 98.9
[2022-06-15] MEDS: Apixaban 5 MG TAB PO SCH (08:51)
[2022-06-15] MEDS: Pantoprazole 40 MG VIAL IVP SCH (08:51)
[2022-06-15] MEDS: Amiodarone 200 MG TAB PO SCH (08:51)
[2022-06-15] MEDS ORDERED: Morphine 2 MG/ML VIAL SLOW IVP PRN (10:21)
[2022-06-15 10:29] VITALS: BP 55/36
[2022-06-15] MEDS: Tamsulosin HCl 0.4 MG CAP PO SCH (10:29)
[2022-06-15] MEDS ORDERED: Nitroglycerin 50 MG/250 ML BOT 0 ML ONE (10:42)
[2022-06-15] MEDS ORDERED: Lorazepam 2 MG/ML VIAL SLOW IVP PRN (10:46)
== END 2022-06-15 10:51 | disposition expired | DRG 207 ==
LOC: ERS 12:17 → ERHOLD 14:40 → IMCU/EMU 19:31 → CCU 06-08 17:19
PROVIDERS: ADMIT Specialist; ATTEND Internal Medicine
PROC: 5A09557 Assistance with Respiratory Ventilation, Greater than 96 Consecutive Hours, Continuous Positive Airway Pressure (ICD-10-PCS; 2022-06-01)
PROC: 5A1955Z Respiratory Ventilation, Greater than 96 Consecutive Hours (ICD-10-PCS; principal; 2022-06-08)
PROC: 0BH17EZ Insertion of Endotracheal Airway into Trachea, Via Natural or Artificial Opening (ICD-10-PCS; 2022-06-08)
PROC: 0D9670Z Drainage of Stomach with Drainage Device, Via Natural or Artificial Opening (ICD-10-PCS; 2022-06-08)
DX: J63 Pneumoconiosis due to other inorganic dusts (principal); J80 Acute respiratory distress syndrome; E87.20 Acidosis, unspecified; I42.8 Other cardiomyopathies; I50.22 Chronic systolic (congestive) heart failure; N17.9 Acute kidney failure, unspecified; G93.40 Encephalopathy, unspecified; R64 Cachexia; Z66 Do not resuscitate; Z20.822 Contact with and (suspected) exposure to COVID-19; E78.5 Hyperlipidemia, unspecified; N40.0 Benign prostatic hyperplasia without lower urinary tract symptoms; K76.0 Fatty (change of) liver, not elsewhere classified; E88.09 Other disorders of plasma-protein metabolism, not elsewhere classified; I11.0 Hypertensive heart disease with heart failure; M81.0 Age-related osteoporosis without current pathological fracture; I48.0 Paroxysmal atrial fibrillation; I46.8 Cardiac arrest due to other underlying condition; E87.70 Fluid overload, unspecified; I95.9 Hypotension, unspecified; Z79.01 Long term (current) use of anticoagulants; Z79.899 Other long term (current) drug therapy; Z79.82 Long term (current) use of aspirin; Z78.1 Physical restraint status; Z68.25 Body mass index [BMI] 25.0-25.9, adult
CPT/HCPCS: 36415; 36416; 36600; 71045; 80048; 80053; 81003; 82550; 82805; 83605; 83735; 83880; 84100; 84145; 84484; 85025; 86140; 87040; 87070; 87086; 87205; 87449; 87633; 87811; 87899; 93005; 93010; 93306; 94002; 94003; 94640; 94660; 96365; 96366; 96367; 96375; C9113; J0456; J0611; J0696; J1815; J1940; J1956; J2060; J2250; J2272; J2704; J2920; J3010; J3475; J3490; J7050; J7120; J7512; J7620; P9045; P9047; U0003; U0005